=== PATIENT | female | born 1975 | race Caucasian/White ===

== ENCOUNTER 2016-06-04 13:27 | Outpatient (RCR) | payer MEDICARE, MEDICAID | END 2016-06-26 | LOC: M PT 13:27 | PROVIDERS: ATTEND Surgery | DX: Z51.89 Encounter for other specified aftercare (principal); I89.0 Lymphedema, not elsewhere classified ==

== ENCOUNTER → 2016-06-25 | Outpatient (CLI) | payer MEDICARE, MEDICAID ==
[2016-06-25 13:50] LABS: BASO # 0.2 K/mm3 (0.0-0.2); BASO % 1.8 % (0.0-1.0); EOS # 0.1 K/mm3 (0.0-0.50); EOS % 0.8 % (0.0-3.0); LARGE UNSTAINED CELL # 0.4 K/mm3 (0.0-0.4); LARGE UNSTAINED CELL % 3.3 % (0.0-4.0); LYMPH # 2.4 K/mm3 (1.5-4.5); LYMPH % 18.9 % (24.0-44.0); MEAN CORPUSCULAR HEMOGLOBIN 27.2 pg (27.0-33.0); MEAN CORPUSCULAR HGB CONC 31.3 g/dl (32.0-36.5); MEAN CORPUSCULAR VOLUME 86.9 fl (80.0-96.0); MONO # 0.6 K/mm3 (0.0-0.8); MONO % 5.7 % (0.0-5.0); NEUTROPHILS # 7.4 K/mm3 (1.8-7.7); NEUTROPHILS % 69.5 % (36.0-66.0); PLATELET COUNT, AUTOMATED 374 k/mm3 (150-450); RED CELL DISTRIBUTION WIDTH 17.9 % (11.5-14.5); WHITE BLOOD COUNT 10.7 K/mm3 (4.0-10.0)
[2016-06-25 13:59] LABS: ALBUMIN 3.8 GM/DL (3.2-5.2); ALT/SGPT 41 U/L (12-78); CREATININE FOR GFR 0.77 MG/DL (0.55-1.02); GLOMERULAR FILTRATION RATE > 60.0 (>58)
== END ==
LOC: M LAB 13:14
PROVIDERS: ATTEND Internal Medicine Rheumatology
DX: M05.79 Rheumatoid arthritis with rheumatoid factor of multiple sites without organ or systems involvement (principal); Z51.81 Encounter for therapeutic drug level monitoring; Z79.899 Other long term (current) drug therapy

== ENCOUNTER → 2016-07-17 | Outpatient (CLI) | payer MEDICARE, MEDICAID ==
[2016-07-17 14:13] LABS: BASO # 0.1 K/mm3 (0.0-0.2); BASO % 0.7 % (0.0-1.0); EOS # 0.1 K/mm3 (0.0-0.50); EOS % 1.2 % (0.0-3.0); LARGE UNSTAINED CELL # 0.3 K/mm3 (0.0-0.4); LARGE UNSTAINED CELL % 2.9 % (0.0-4.0); LYMPH # 2.2 K/mm3 (1.5-4.5); LYMPH % 22.8 % (24.0-44.0); MEAN CORPUSCULAR HEMOGLOBIN 27.1 pg (27.0-33.0); MEAN CORPUSCULAR HGB CONC 31.2 g/dl (32.0-36.5); MEAN CORPUSCULAR VOLUME 86.7 fl (80.0-96.0); MONO # 0.4 K/mm3 (0.0-0.8); MONO % 4.3 % (0.0-5.0); NEUTROPHILS # 6.5 K/mm3 (1.8-7.7); NEUTROPHILS % 68.2 % (36.0-66.0); PLATELET COUNT, AUTOMATED 457 k/mm3 (150-450); RED CELL DISTRIBUTION WIDTH 16.3 % (11.5-14.5); WHITE BLOOD COUNT 9.5 K/mm3 (4.0-10.0)
[2016-07-17 14:36] LABS: ALBUMIN 3.8 GM/DL (3.2-5.2); ALT/SGPT 147 U/L (12-78); CREATININE FOR GFR 0.71 MG/DL (0.55-1.02); GLOMERULAR FILTRATION RATE > 60.0 (>58)
== END ==
LOC: M LAB 13:23
PROVIDERS: ATTEND Internal Medicine Rheumatology
DX: M05.79 Rheumatoid arthritis with rheumatoid factor of multiple sites without organ or systems involvement (principal); Z79.899 Other long term (current) drug therapy

== ENCOUNTER → 2016-08-08 | Outpatient (CLI) | payer MEDICARE, MEDICAID ==
[2016-08-08 15:46] LABS: BASO % 0.4 % (0.0-1.0); EOS % 0.5 % (0.0-3.0); LARGE UNSTAINED CELL # 0.1 K/mm3 (0.0-0.4); LYMPH # 1.7 K/mm3 (1.5-4.5); LYMPH % 29.3 % (24.0-44.0); MEAN CORPUSCULAR HEMOGLOBIN 27.9 pg (27.0-33.0); MEAN CORPUSCULAR HGB CONC 32.1 g/dl (32.0-36.5); MEAN CORPUSCULAR VOLUME 86.9 fl (80.0-96.0); MONO # 0.2 K/mm3 (0.0-0.8); MONO % 4.5 % (0.0-5.0); NEUTROPHILS # 3.4 K/mm3 (1.8-7.7); NEUTROPHILS % 63.4 % (36.0-66.0); PLATELET COUNT, AUTOMATED 310 k/mm3 (150-450); RED CELL DISTRIBUTION WIDTH 16.2 % (11.5-14.5); WHITE BLOOD COUNT 5.4 K/mm3 (4.0-10.0)
[2016-08-08 16:10] LABS: ALBUMIN 3.5 GM/DL (3.2-5.2); ALBUMIN/GLOBULIN RATIO 0.95 (1.00-1.93); ALKALINE PHOSPHATASE 101 U/L (45-117); ALT/SGPT 42 U/L (12-78); AST/SGOT 34 U/L (15-37); BILIRUBIN,DIRECT 0.1 MG/DL (0.0-0.2); BILIRUBIN,TOTAL 0.3 MG/DL (0.2-1.0); CREATININE FOR GFR 0.75 MG/DL (0.55-1.02); GLOMERULAR FILTRATION RATE > 60.0 (>58); TOTAL PROTEIN 7.2 GM/DL (6.4-8.2)
== END ==
LOC: M LAB 14:44
PROVIDERS: ATTEND Internal Medicine Rheumatology
DX: M05.79 Rheumatoid arthritis with rheumatoid factor of multiple sites without organ or systems involvement (principal); Z79.899 Other long term (current) drug therapy

== ENCOUNTER → 2016-09-26 | Outpatient (CLI) | payer MEDICARE ==
--- NOTE | 2016-09-26 15:02 | REP ---
BILATERAL MAMMOGRAM, BASELINE STUDY: MLO and CC views of both breasts are performed. Moderate fibroglandular tissue is seen bilaterally in a fairly symmetrical pattern. On the left CC view laterally and posteriorly, is a rounded density 8 mm in diameter. This is not definitely seen on the MLO view. No other mass is seen. No clustered microcalcifications are seen. IMPRESSION: ACR 0 incomplete. Possible 8 mm nodular opacity lateral left breast only seen on the CC view. Recommend spot compression view left breast in the CC projection as well as the left ML view. Further views and ultrasound may also be necessary. BI-RADS/ACR category 0 mammogram. Incomplete. Additional imaging and/or prior images are needed before a final assessment can be assigned. This mammogram was interpreted with the aid of an FDA-approved computer-aided detection system. The patient states she/he has not had a clinical breast exam in over a year. The patient letter being requested is M0. Signed by Jesse Michel MD 09/26/2016 04:48 P
== END ==
LOC: M RAD 13:14
PROVIDERS: ATTEND Neuromusculoskeletal Medicine & OMM
DX: Z12.31 Encounter for screening mammogram for malignant neoplasm of breast (principal); R92.8 Other abnormal and inconclusive findings on diagnostic imaging of breast

== ENCOUNTER → 2016-09-26 | Outpatient (CLI) | payer MEDICARE ==
[2016-09-26 14:34] LABS: BASO # 0.1 K/mm3 (0.0-0.2); BASO % 0.9 % (0.0-1.0); EOS # 0.1 K/mm3 (0.0-0.50); EOS % 1.3 % (0.0-3.0); LARGE UNSTAINED CELL # 0.2 K/mm3 (0.0-0.4); LARGE UNSTAINED CELL % 2.1 % (0.0-4.0); LYMPH # 2.1 K/mm3 (1.5-4.5); LYMPH % 20.4 % (24.0-44.0); MEAN CORPUSCULAR HEMOGLOBIN 26.7 pg (27.0-33.0); MEAN CORPUSCULAR HGB CONC 31.1 g/dl (32.0-36.5); MEAN CORPUSCULAR VOLUME 85.9 fl (80.0-96.0); MONO # 0.4 K/mm3 (0.0-0.8); MONO % 4.2 % (0.0-5.0); NEUTROPHILS # 6.6 K/mm3 (1.8-7.7); PLATELET COUNT, AUTOMATED 418 k/mm3 (150-450); RED CELL DISTRIBUTION WIDTH 16.4 % (11.5-14.5); WHITE BLOOD COUNT 9.2 K/mm3 (4.0-10.0)
[2016-09-26 14:49] LABS: ALBUMIN 3.6 GM/DL (3.2-5.2); ALBUMIN/GLOBULIN RATIO 0.97 (1.00-1.93); ALKALINE PHOSPHATASE 133 U/L (45-117); ALT/SGPT 33 U/L (12-78); ANION GAP 8 MEQ/L (8-16); AST/SGOT 19 U/L (15-37); BILIRUBIN,DIRECT 0.1 MG/DL (0.0-0.2); BILIRUBIN,TOTAL 0.4 MG/DL (0.2-1.0); BLOOD UREA NITROGEN 10 MG/DL (7-18); CARBON DIOXIDE LEVEL 26 MEQ/L (21-32); CHLORIDE LEVEL 107 MEQ/L (98-107); CREATININE FOR GFR 0.74 MG/DL (0.55-1.02); GLOMERULAR FILTRATION RATE > 60.0 (>58); GLUCOSE, FASTING 132 MG/DL (70-105); PHOSPHORUS LEVEL 2.8 MG/DL (2.5-4.9); POTASSIUM SERUM 4.1 MEQ/L (3.5-5.1); SODIUM LEVEL 141 MEQ/L (136-145); TOTAL PROTEIN 7.3 GM/DL (6.4-8.2)
== END ==
LOC: M LAB 13:54
PROVIDERS: ATTEND Internal Medicine Rheumatology
DX: Z12.31 Encounter for screening mammogram for malignant neoplasm of breast (principal); R92.8 Other abnormal and inconclusive findings on diagnostic imaging of breast; M05.79 Rheumatoid arthritis with rheumatoid factor of multiple sites without organ or systems involvement; Z51.81 Encounter for therapeutic drug level monitoring; Z79.899 Other long term (current) drug therapy
CPT/HCPCS: 36415; 80069; 80076; 85025; G0202

== ENCOUNTER 2016-10-15 10:09 | Emergency (ER) | payer MEDICARE ==
[~2016-10-15] VITALS: Ht 167.6 cm; Wt 95.3 kg
[2016-10-15] MEDS ORDERED: LEFL1TAB4 (10:20)
[2016-10-15] MEDS ORDERED: HYDR12CA (10:20)
[2016-10-15] MEDS ORDERED: ALBU83IN (10:20)
[2016-10-15] MEDS ORDERED: PROA1AER (10:20)
[2016-10-15] MEDS ORDERED: OMEP40CA2 (10:20)
[2016-10-15] MEDS ORDERED: IPRATROPIUM 0.5MG/ALBUTEROL 2.5MG INH SOL UD 3ML (DUONEB)(J7620) NEB ONE (11:00)
[2016-10-15] MEDS ORDERED: GUAI5ELAC PO (11:45)
[2016-10-15] MEDS ORDERED: PRED20TA PO (11:45)
--- NOTE | 2016-10-15 11:49 | REP ---
Clinical: Cough . Comparison: 07/20/2014 . Technique: PA and lateral. Findings: The mediastinum and cardiac silhouette are normal. The lung burciaga are clear and without acute consolidation, effusion, or pneumothorax. The skeletal structures are intact and normal. Impression: 1. No acute cardiopulmonary process. Signed by Saad Lopez MD 10/15/2016 11:41 A
[2016-10-15 11:51] VITALS: BP 179/85
== END 2016-10-15 11:59 | disposition home or self-care (01) ==
LOC: M ED 11:03
DX: J20.9 Acute bronchitis, unspecified (principal); I10 Essential (primary) hypertension; J45.909 Unspecified asthma, uncomplicated; M06.9 Rheumatoid arthritis, unspecified; Z79.899 Other long term (current) drug therapy

== ENCOUNTER → 2016-10-16 | Outpatient (CLI) | payer MEDICARE ==
[~2016-10-16] MED LIST: ALBU83IN; GUAI5ELAC PO; HYDR12CA; LEFL1TAB4; OMEP40CA2; PRED20TA PO; PROA1AER
--- NOTE | 2016-10-16 11:41 | REP ---
DIGITAL DIAGNOSTIC UNILATERAL LEFT BREAST MAMMOGRAPHY WITH CAD AND FOCUSED LEFT BREAST SONOGRAPHY: HISTORY: Baseline screening mammography from September 26, 2016 was BIRADS category 0 because of a nodular 8 mm density projecting laterally seen on the CC view only. Diagnostic imaging was recommended. MAMMOGRAPHIC FINDINGS: Magnified focal spot compression CC, laterally exaggerated CC, true MLO, and MLO views of the left breast confirm the presence of a 7 mm nodular opacity with a hilar configuration possibly containing some fat in the upper outer quadrant of the left breast. This is felt to be consistent with a lymph node. No spiculation, suspicious microcalcification or other soft tissue density is seen. MAMMOGRAPHIC FINDINGS: The left breast is examined sonographically from 12-o'clock position to 3-o'clock position encompassing the upper outer quadrant. At 2-o'clock position, there is a lymph node measuring 5.4 x 5.4 x 3.1 cm located 8.8 cm from the nipple. A benign appearance is seen. IMPRESSION: BIRADS category II benign left breast imaging. Normal appearing lymph node observed in the upper outer quadrant by mammography and ultrasound. Annual screening mammography recommended. BI-RADS/ACR category 2 mammogram. Benign finding(s). Routine annual screening mammography (for women over age 40). This mammogram was interpreted with the aid of an FDA-approved computer-aided detection system. The patient states that she/he has not had a clinical breast exam in over a year. The patient letter being requested is M1. Signed by Riaz Johnson MD 10/16/2016 05:07 P
== END ==
LOC: M RAD 09:36
PROVIDERS: ATTEND Neuromusculoskeletal Medicine & OMM
DX: R92.8 Other abnormal and inconclusive findings on diagnostic imaging of breast (principal)
CPT/HCPCS: 76642; G0206

== ENCOUNTER 2016-11-05 13:19 | Outpatient (RCR) | payer MEDICARE, MEDICAID ==
[~2016-11-05 13:19] MED LIST changes: -ALBU83IN; +ALBU83IN INH; -HYDR12CA; +HYDR12CA PO; -OMEP40CA2; +OMEP40CA2 PO; -PROA1AER; +PROAAER10 INH
== END 2016-11-23 ==
LOC: M PT 13:19
PROVIDERS: ATTEND Surgery
DX: Z51.89 Encounter for other specified aftercare (principal); I89.0 Lymphedema, not elsewhere classified
CPT/HCPCS: 97161; G8978; G8979; G8980

== ENCOUNTER → 2016-11-05 | Outpatient (CLI) | payer MEDICARE, MEDICAID ==
[2016-11-05 19:45] LABS: ALBUMIN 3.4 GM/DL (3.2-5.2); ALT/SGPT 44 U/L (12-78); GLOMERULAR FILTRATION RATE > 60.0 (>58)
[2016-11-05 22:15] LABS: BASO # 0.1 K/mm3 (0.0-0.2); BASO % 0.9 % (0.0-1.0); EOS # 0.1 K/mm3 (0.0-0.50); EOS % 1.2 % (0.0-3.0); LARGE UNSTAINED CELL # 0.2 K/mm3 (0.0-0.4); LARGE UNSTAINED CELL % 1.9 % (0.0-4.0); LYMPH # 1.8 K/mm3 (1.5-4.5); MEAN CORPUSCULAR HEMOGLOBIN 26.7 pg (27.0-33.0); MEAN CORPUSCULAR HGB CONC 31.3 g/dl (32.0-36.5); MEAN CORPUSCULAR VOLUME 85.5 fl (80.0-96.0); MONO # 0.5 K/mm3 (0.0-0.8); MONO % 5.8 % (0.0-5.0); NEUTROPHILS # 6.3 K/mm3 (1.8-7.7); NEUTROPHILS % 70.4 % (36.0-66.0); PLATELET COUNT, AUTOMATED 404 k/mm3 (150-450); RED CELL DISTRIBUTION WIDTH 16.5 % (11.5-14.5); WHITE BLOOD COUNT 8.9 K/mm3 (4.0-10.0)
== END ==
LOC: M LAB 14:14
PROVIDERS: ATTEND Internal Medicine Rheumatology
DX: M05.79 Rheumatoid arthritis with rheumatoid factor of multiple sites without organ or systems involvement (principal); Z79.899 Other long term (current) drug therapy

== ENCOUNTER → 2016-11-19 | Outpatient (CLI) | payer MEDICARE, MEDICAID ==
[~2016-11-19] MED LIST changes: +ALBU83IN; -ALBU83IN INH; +HYDR12CA; -HYDR12CA PO; +OMEP40CA2; -OMEP40CA2 PO; +PROA1AER; -PROAAER10 INH
[2016-11-19 11:03] LABS: ALBUMIN 3.4 GM/DL (3.2-5.2); ALBUMIN/GLOBULIN RATIO 0.89 (1.00-1.93); ALKALINE PHOSPHATASE 133 U/L (45-117); ALT/SGPT 33 U/L (12-78); AST/SGOT 42 U/L (15-37); BILIRUBIN,DIRECT < 0.1 MG/DL (0.0-0.2); BILIRUBIN,TOTAL 0.2 MG/DL (0.2-1.0); TOTAL PROTEIN 7.2 GM/DL (6.4-8.2)
--- NOTE | 2016-11-19 12:14 | REP ---
Clinical: Abdominal pain. History of chemotherapy. Technique: Michel scale ultrasound using curved array transducer. Findings: The liver demonstrates fatty infiltration without focal hepatic lesion identified. The pancreas is normal in contour, size, and echogenicity without focal pancreatic lesion identified. The gallbladder is normal without gallstones, wall thickening or pericholecystic fluid. No biliary ductal dilatation is appreciated, and the common bile duct measures 3.0 mm diameter. The right kidney is normal in reniform shape without hydronephrosis and measures 10.4 x 4.7 x 4.2 cm. No ascites. Visualized portions of the abdominal aorta normal. Impression: Hepatosteatosis. Otherwise normal right upper quadrant and gallbladder abdominal ultrasound. Signed by Saad Lopez MD 11/19/2016 09:30 A
== END ==
LOC: M RAD 08:52 → M LAB 08:52
PROVIDERS: ATTEND Internal Medicine Gastroenterology
DX: R74.8 Abnormal levels of other serum enzymes (principal)

== ENCOUNTER → 2016-12-24 | Outpatient (CLI) | payer MEDICARE, MEDICAID ==
[~2016-12-24] MED LIST changes: -ALBU83IN; +ALBU83IN INH; +ARAV20TA PO; +FOLI1TAB4 PO; +FOLI5CAP PO; -HYDR12CA; +HYDR12CA PO; +LEVO750T13 PO; +MEDR4PAK PO; +METH2.5TA PO; -OMEP40CA2; +OMEP40CA2 PO; +PRED10TA2 PO; -PROA1AER; +PROAAER10 INH; +TRAM50TA2 PO; +VITMTA PO; +ZITHTAB PO
[2016-12-24 15:58] LABS: ADD MANUAL DIFFER YES; MEAN CORPUSCULAR HEMOGLOBIN 25.8 pg (27.0-33.0); MEAN CORPUSCULAR HGB CONC 31.2 g/dl (32.0-36.5); MEAN CORPUSCULAR VOLUME 82.7 fl (80.0-96.0); PLATELET COUNT, AUTOMATED 508 k/mm3 (150-450); RED CELL DISTRIBUTION WIDTH 16.1 % (11.5-14.5); WHITE BLOOD COUNT 8.5 K/mm3 (4.0-10.0)
[2016-12-24 16:02] LABS: ALBUMIN 3.6 GM/DL (3.2-5.2); ALT/SGPT 58 U/L (12-78); GLOMERULAR FILTRATION RATE > 60.0 (>58)
[2016-12-24 21:49] LABS: ANISOCYTOSIS 2+; EOSINOPHILS 3 % (0-5); HYPOCHROMASIA 1+
== END ==
LOC: M LAB 15:18
PROVIDERS: ATTEND Internal Medicine Rheumatology
DX: M05.79 Rheumatoid arthritis with rheumatoid factor of multiple sites without organ or systems involvement (principal); Z79.899 Other long term (current) drug therapy

== ENCOUNTER → 2017-01-10 | Outpatient (REF) | payer MEDICARE, MEDICAID | LOC: M LAB REF 15:34 | PROVIDERS: ATTEND Neuromusculoskeletal Medicine & OMM | DX: L03.311 Cellulitis of abdominal wall (principal) | CPT/HCPCS: 87081; G0463 ==

== ENCOUNTER → 2017-01-17 | Outpatient (CLI) | payer MEDICARE, MEDICAID ==
[2017-01-17 12:53] LABS: BASO # 0.1 K/mm3 (0.0-0.2); EOS # 0.1 K/mm3 (0.0-0.50); EOS % 1.9 % (0.0-3.0); LARGE UNSTAINED CELL # 0.2 K/mm3 (0.0-0.4); LARGE UNSTAINED CELL % 2.4 % (0.0-4.0); LYMPH # 2.1 K/mm3 (1.5-4.5); LYMPH % 27.1 % (24.0-44.0); MEAN CORPUSCULAR HEMOGLOBIN 26.3 pg (27.0-33.0); MEAN CORPUSCULAR HGB CONC 31.8 g/dl (32.0-36.5); MEAN CORPUSCULAR VOLUME 82.5 fl (80.0-96.0); MONO # 0.5 K/mm3 (0.0-0.8); MONO % 6.9 % (0.0-5.0); NEUTROPHILS # 4.3 K/mm3 (1.8-7.7); NEUTROPHILS % 60.7 % (36.0-66.0); PLATELET COUNT, AUTOMATED 407 k/mm3 (150-450)
[2017-01-17 13:02] LABS: PERCENT SATURATION 8.9 % (13.2-45.0)
== END ==
LOC: M LAB 11:38
PROVIDERS: ATTEND Internal Medicine Rheumatology
DX: M05.79 Rheumatoid arthritis with rheumatoid factor of multiple sites without organ or systems involvement (principal); Z79.899 Other long term (current) drug therapy; E61.1 Iron deficiency

== ENCOUNTER → 2017-01-24 | Outpatient (REF) | payer MEDICARE, MEDICAID ==
[2017-01-24 18:29] LABS: ALBUMIN 3.4 GM/DL (3.2-5.2); ALT/SGPT 39 U/L (12-78); CREATININE FOR GFR 0.67 MG/DL (0.55-1.02); GLOMERULAR FILTRATION RATE > 60.0 (>58)
== END ==
LOC: M LABDRAW1 15:54
PROVIDERS: ATTEND Internal Medicine Rheumatology
DX: M05.79 Rheumatoid arthritis with rheumatoid factor of multiple sites without organ or systems involvement (principal); Z79.899 Other long term (current) drug therapy

== ENCOUNTER 2017-02-13 19:35 | Emergency (ER) | payer MEDICARE, MEDICAID ==
[~2017-02-13] VITALS: Ht 167.6 cm; Wt 95.0 kg
[~2017-02-13 19:35] MED LIST changes: -ARAV20TA PO; -FOLI1TAB4 PO; -FOLI5CAP PO; -LEVO750T13 PO; -MEDR4PAK PO; -METH2.5TA PO; -PRED10TA2 PO; -TRAM50TA2 PO; -VITMTA PO; -ZITHTAB PO
[2017-02-13] MEDS ORDERED: METH2.5TA PO (20:25)
[2017-02-13] MEDS ORDERED: FOLI5CAP PO (20:25)
[2017-02-13] MEDS ORDERED: ARAV20TA PO (20:26)
[2017-02-13] MEDS ORDERED: TRAM50TA2 PO (21:46)
[2017-02-13 22:03] VITALS: BP 143/91
--- NOTE | 2017-02-14 07:43 | REP ---
Right hand four views: Comparison 11/12/2013. There is mild joint space narrowing of the PIP and DIP articulations. This has slightly progressed and is compatible with articular cartilage atrophy. The MCP articulations are unremarkable. There is joint space narrowing of the carpal ossicles. This has also progressed. Impression: Progressive early arthropathy. Signed by Jesse Hoyt MD 02/14/2017 07:35 A
== END 2017-02-13 22:05 | disposition home or self-care (01) ==
LOC: M ED 19:35
DX: S69.91XA Unspecified injury of right wrist, hand and finger(s), initial encounter (principal); W22.8XXA Striking against or struck by other objects, initial encounter; Y92.099 Unspecified place in other non-institutional residence as the place of occurrence of the external cause; Y93.9 Activity, unspecified; Y99.9 Unspecified external cause status; F17.200 Nicotine dependence, unspecified, uncomplicated; Z79.899 Other long term (current) drug therapy; Z91.013 Allergy to seafood

== ENCOUNTER → 2017-02-26 | Outpatient (CLI) | payer MEDICARE, MEDICAID ==
[~2017-02-26] MED LIST changes: +ARAV20TA PO; +FOLI1TAB4 PO; +FOLI5CAP PO; +LEVO750T13 PO; +MEDR4PAK PO; +METH2.5TA PO; +PRED10TA2 PO; +TRAM50TA2 PO; +VITMTA PO; +ZITHTAB PO
[2017-02-26 16:34] LABS: ALBUMIN 3.5 GM/DL (3.2-5.2); ALT/SGPT 46 U/L (12-78); CREATININE FOR GFR 0.76 MG/DL (0.55-1.02); GLOMERULAR FILTRATION RATE > 60.0 (>58)
[2017-02-26 21:47] LABS: BASO # 0.1 10^3/uL (0.0-0.2); BASO % 1.2 % (0.0-1.0); EOS # 0.3 10^3/uL (0.0-0.50); EOS % 2.9 % (0.0-3.0); IMMATURE GRANULOCYTE % 0.2 % (0-0); LYMPH # 2.3 10^3/uL (1.5-4.5); LYMPH % 26.7 % (24.0-44.0); MEAN CORPUSCULAR HEMOGLOBIN 26.3 pg (27.0-33.0); MEAN CORPUSCULAR HGB CONC 31.1 g/dl (32.0-36.5); MEAN CORPUSCULAR VOLUME 84.5 fl (80.0-96.0); MONO # 0.7 10^3/uL (0.0-0.8); MONO % 7.9 % (0.0-5.0); NEUTROPHILS # 5.2 10^3/uL (1.8-7.7); NEUTROPHILS % 61.1 % (36.0-66.0); PLATELET COUNT, AUTOMATED 439 10^3/uL (150-450); RED CELL DISTRIBUTION WIDTH 18.8 % (11.5-14.5); WHITE BLOOD COUNT 8.5 10^3/uL (4.0-10.0)
[2017-02-26 21:48] LABS: ADD MORPHOLOGY? NO
== END ==
LOC: M LAB 14:58
PROVIDERS: ATTEND Internal Medicine Rheumatology
DX: M05.79 Rheumatoid arthritis with rheumatoid factor of multiple sites without organ or systems involvement (principal)

== ENCOUNTER 2017-03-14 10:10 | Inpatient (IN) | payer MEDICARE, MEDICAID ==
[~2017-03-14] VITALS: Ht 167.6 cm; Wt 92.5 kg
[~2017-03-14 10:10] MED LIST changes: -FOLI1TAB4 PO; -LEVO750T13 PO; -MEDR4PAK PO; -PRED10TA2 PO; -VITMTA PO; -ZITHTAB PO
[2017-03-14] MEDS ORDERED: ZITHTAB PO (11:25)
[2017-03-14] MEDS ORDERED: predniSONE 20 MG TAB PO ONE (11:45)
[2017-03-14] MEDS ORDERED: ALBUTEROL SULFATE 2.5 MG/0.5 ML INH NEB SOLN NEB ONE ×2 (11:45→12:30)
[2017-03-14] MEDS ORDERED: MEDR4PAK PO (11:56)
[2017-03-14] MEDS ORDERED: methylPREDNISolone INJ 125 MG/2 ML VIAL (J2930) IV ONE (13:00)
[2017-03-14] MEDS ORDERED: IPRATROPIUM 0.5MG/ALBUTEROL 2.5MG INH SOL UD 3ML (DUONEB)(J7620) NEB ONE (13:15)
[2017-03-14] MEDS ORDERED: ACETAMINOPHEN TAB 650MG DOSE (2X325MG) PO ONE (13:30)
[2017-03-14 14:23] LABS: VENOUS BASE EXCESS 0.9 (-2.0-2.0); VENOUS O2 SATURATION 92.4 % (60.0-80.0); VENOUS PARTIAL PRESSURE CO2 36.4 mmHg (38.0-50.0); VENOUS PARTIAL PRESSURE O2 60.7 mmHg (30.0-50.0); VENOUS STANDARD HCO3 25.1 MEQ/L; VENOUS TOTAL CO2 25.7 MEQ/L (24.0-28.0)
[2017-03-14 14:28] LABS: BASO # 0.1 10^3/uL (0.0-0.2); BASO % 0.5 % (0.0-1.0); EOS % 0.1 % (0.0-3.0); IMMATURE GRANULOCYTE % 0.7 % (0-0); LYMPH # 0.8 10^3/uL (1.5-4.5); LYMPH % 4.9 % (24.0-44.0); MEAN CORPUSCULAR HEMOGLOBIN 26.6 pg (27.0-33.0); MEAN CORPUSCULAR HGB CONC 31.5 g/dl (32.0-36.5); MEAN CORPUSCULAR VOLUME 84.3 fl (80.0-96.0); MONO # 0.4 10^3/uL (0.0-0.8); MONO % 2.5 % (0.0-5.0); NEUTROPHILS # 14.4 10^3/uL (1.8-7.7); NEUTROPHILS % 91.3 % (36.0-66.0); PLATELET COUNT, AUTOMATED 469 10^3/uL (150-450); RED CELL DISTRIBUTION WIDTH 18.1 % (11.5-14.5); WHITE BLOOD COUNT 15.8 10^3/uL (4.0-10.0)
[2017-03-14 14:42] LABS: INR 1.05
--- NOTE | 2017-03-14 14:53 | REP ---
Chest two views HISTORY: Cough Comparison: 10/15/2016 The lungs are clear. The heart is normal in size. The pulmonary vasculature is normal in appearance. The bony structure is intact. IMPRESSION: No acute disease. Signed by Riley España MD 03/14/2017 02:44 P
[2017-03-14 14:58] LABS: ANION GAP 10 MEQ/L (8-16); BLOOD UREA NITROGEN 5 MG/DL (7-18); CALCIUM LEVEL 9.2 MG/DL (8.5-10.1); CARBON DIOXIDE LEVEL 26 MEQ/L (21-32); CHLORIDE LEVEL 103 MEQ/L (98-107); CREATININE FOR GFR 0.66 MG/DL (0.55-1.02); GLOMERULAR FILTRATION RATE > 60.0 (>58); GLUCOSE, FASTING 192 MG/DL (70-105); POTASSIUM SERUM 2.8 MEQ/L (3.5-5.1); SODIUM LEVEL 139 MEQ/L (136-145)
[2017-03-14] MEDS ORDERED: ISOVUE-370 76% 100ML VIAL (Q9967) As Ordered ONE (15:34)
[2017-03-14] MEDS ORDERED: NS 250 ML IV ONE (15:45)
[2017-03-14] MEDS ORDERED: POTASSIUM CHLORIDE 10 MEQ SR TABLET PO ONE (15:45)
[2017-03-14] MEDS ORDERED: KCL 10MEQ IN 100ML SWI (KRUN) 10 MEQ in APPROPRIATE DILUENT 1 EA IV ONE ×2 (16:00)
--- NOTE | 2017-03-14 17:07 | REP ---
CT ANGIOGRAM CHEST: 03/14/2017. Clinical history: Dyspnea, evaluate for pulmonary emboli. Technique: The patient received 75 mL Isovue 370, scanning through the chest with thick slab MIP reformatting. Findings: There are hazy ground-glass opacities scattered throughout the lung burci[place], may reflect some asthmatic atelectasis, interstitial edema or other interstitial infiltrates. I do not see dense consolidation with air bronchograms. There is no pleural effusion, pleural thickening or pleural based mass. No discrete nodule identified. Heart is not enlarged. There is no pericardial thickening or effusion. The aorta is without aneurysm or dissection. The main, right and left pulmonary arteries are without filling defects. Segmental arteries are without filling defects. Subsegmental arteries are not well opacified on this study, likely due to technical artifact. No pathologic sized mediastinal or hilar adenopathy and no axillary or supraclavicular mass. Bone windows show sternum, manubrium, portions of clavicles visible, head, glenohumeral joints, scapula, ribs and spine all grossly intact without destructive lesion or fracture. In the upper abdomen included that portion of liver, spleen, pancreas, gallbladder, adrenal glands and upper poles of kidneys were intact. None of them were seen in their entirety. Stomach filled with retained food. Impression: 1. There is no CT evidence of pulmonary thromboembolism. No mediastinal or hilar adenopathy, aortic aneurysm or dissection. 2. There is diffuse hazy ground-glass opacity in the lung burciaga without air bronchograms or dense consolidation. Findings may reflect some patchy atelectasis due to asthma, interstitial lung disease, interstitial edema or other. No effusion. Signed by Nadir Lizama MD 03/14/2017 08:11 P
[2017-03-14] MEDS ORDERED: LevoFLOXacin IV 750 MG in APPROPRIATE DILUENT 1 EA IV ONE (17:30)
[2017-03-14] MEDS ORDERED: VITMTA PO (17:41)
[2017-03-14] MEDS ORDERED: TRAM50TA2 PO (17:41)
[2017-03-14] MEDS ORDERED: FOLI1TAB4 PO (17:41)
[2017-03-14] MEDS ORDERED: ACETAMINOPHEN TAB 650MG DOSE (2X325MG) PO PRN (19:00)
[2017-03-14] MEDS ORDERED: ONDANSETRON 4MG/2ML VIAL (J2405) IV PRN (19:00)
[2017-03-14] MEDS ORDERED: LEVALBUTEROL 1.25 MG/0.5 ML CONCENTRATE NEB INH PRN (19:00)
[2017-03-14] MEDS: LEVALBUTEROL 1.25 MG/0.5 ML CONCENTRATE NEB INH SCH ×2 (20:00→23:37)
[2017-03-14] MEDS ORDERED: traMADol 50 MG TAB PO PRN (20:00)
--- NOTE | 2017-03-14 20:01 | HPEPDOC ---
[facility] Medical History & Physical Date of Admission Mar 14, 2017 History and Physical PRIMARY CARE PROVIDER: Jesse Richmond ATTENDING: Dr. Caterina Miguel CHIEF COMPLAINT: Shortness of breath HISTORY OF PRESENT ILLNESS: This is a 41-year-old female past medical history of asthma, rheumatoid arthritis, seasonal allergies, degenerative disc disease in the lumbar spine who presents complaining of shortness of breath 2 weeks. Patient states that she developed shortness of breath and wheezing followed by proctoscopy cough of yellow sputum which is been progressively getting worse over the past 2 weeks. Denies any sick contacts or recent travels. States she has a history of asthma since she was a child however has never been hospitalized for an asthma exacerbation. She does have a history of rheumatoid arthritis however is unsure whether she was ever diagnosed with interstitial lung disease. Patient did present to the ED was treated with nebulizers, steroids, with significant relief of her symptoms. Patient did have chest tightness with her asthma exacerbation describes as 4 out of 10, nonradiating, midsternal, nonpruritic, non-reproducible which improves with cough. PAST MEDICAL HISTORY: As per HPI PAST SURGICAL HISTORY: None SOCIAL HISTORY: Denies tobacco, alcohol, illicit drug use. FAMILY HISTORY: Mother with heart disease ALLERGIES: Please see below. REVIEW OF SYSTEMS: HEENT: Denies sore throat/headache CARDIOVASCULAR: Denies chest pain/palpitations RESPIRATORY: Positive shortness of breath/cough GASTROINTESTINAL: denies nausea/vomiting GENITOURINARY: Denies dysuria/urinary urgency. MUSCULOSKELETAL: Denies myalgias/arthralgias NEUROLOGICAL: Denies any focal weakness HOME MEDICATIONS: Please see below. PHYSICAL EXAMINATION: Vitals: (see below) General: No acute distress, laying comfortably in bed. HEENT: Moist mucous membranes. Neck: No JVD or lymphadenopathy Cardiac: Tachycardic. Regular rhythm, No murmurs Pulm: Coarse crackles at the bases b/l. Minimal respiratory wheezing bilaterally. No rhonchi. No stridor. No use of accessory muscles. Abd: NT/ND + BS Ext: No edema or cyanosis LABORATORY DATA: See below. IMAGING: CTA chest on 03/14/17 Impression: 1. There is no CT evidence of pulmonary thromboembolism. No mediastinal or hilar adenopathy, aortic aneurysm or dissection. 2. There is diffuse hazy ground-glass opacity in the lung burciaga without air bronchograms or dense consolidation. Findings may reflect some patchy atelectasis due to asthma, interstitial lung disease, interstitial edema or other. No effusion. MICROBIOLOGY: Please see below. ASSESSMENT/PLAN: 1. Asthma exacerbation, likely secondary to community acquired pneumonia- improved with nebulizers, steroids. Started on Levaquin. Continue nebs, steroids , oxygen therapy. No prior intubations or hospitalizations for asthma exacerbation. Questionable with the patient has started to develop interstitial lung disease secondary to her underlying rheumatoid arthritis. 2. Hypertension- uncontrolled. Started on amlodipine 3. Rheumatoid arthritis- continue meds 4. Seasonal allergies 5. Degenerative disc disease DVT prophylaxis- enoxaparin Patient will follow-up with Dr. Caterina Miguel starting 03/15/17 at 7 AM. Vital Signs Vital Signs Date Time Temp Pulse Resp B/P (MAP) Pulse Ox O2 Delivery O2 Flow Rate FiO2 03/14/17 17:31 114 161/64 (96) 94 03/14/17 16:46 98.7 18 03/14/17 12:50 Room Air Laboratory Data Labs 24H Laboratory Tests 2 03/14/17 13:27: Immature Granulocyte % (Auto) 0.7H, White Blood Count 15.8H, Red Blood Count 4.40, Hemoglobin 11.7L, Hematocrit 37.1, Mean Corpuscular Volume 84.3, Mean Corpuscular Hemoglobin 26.6L, Mean Corpuscular Hemoglobin Concent 31.5L, Red Cell Distribution Width 18.1H, Platelet Count 469H, Neutrophils (%) (Auto) 91.3H , Lymphocytes (%) (Auto) 4.9L, Monocytes (%) (Auto) 2.5, Eosinophils (%) (Auto) 0.1, Basophils (%) (Auto) 0.5, Neutrophils # (Auto) 14.4H, Lymphocytes # (Auto) 0.8L, Monocytes # (Auto) 0.4, Eosinophils # (Auto) 0.0, Basophils # (Auto) 0.1, Immature Granulocyte # (Auto) 0.1H, Nucleated Red Blood Cells % (auto) 0.0, Prothrombin Time 13.8, Prothromb Time International Ratio 1.05, Blood Gas Bicarbonate Standard 25.1, Venous Blood pH 7.448H, Venous Blood Partial Pressure CO2 36.4L, Venous Blood Partial Pressure O2 60.7H, Venous Blood Total Carbon Dioxide 25.7, Venous Blood HCO3 24.6, Venous Blood Oxygen Saturation 92.4H, Venous Blood Base Excess 0.9, Lactic Acid Level 1.9 03/14/17 14:42: Anion Gap 10, Glomerular Filtration Rate > 60.0, Blood Urea Nitrogen 5L, Creatinine 0.66, Sodium Level 139, Potassium Level 2.8*L, Chloride Level 103, Carbon Dioxide Level 26, Calcium Level 9.2, Total Creatine Kinase 72, Creatine Kinase MB 1.0, Creatine Kinase MB Relative Index 1.38, Troponin I < 0.02, NT-Pro -B-Type Natriuretic Peptide 159H CBC/BMP Laboratory Tests 03/14/17 13:27 Red Blood Count 4.40, Mean Corpuscular Volume 84.3, Mean Corpuscular Hemoglobin 26.6 L, Mean Corpuscular Hemoglobin Concent 31.5 L, Red Cell Distribution Width 18.1 H, Neutrophils (%) (Auto) 91.3 H, Lymphocytes (%) (Auto) 4.9 L, Monocytes ( %) (Auto) 2.5, Eosinophils (%) (Auto) 0.1, Basophils (%) (Auto) 0.5, Neutrophils # (Auto) 14.4 H, Lymphocytes # (Auto) 0.8 L, Monocytes # (Auto) 0.4 , Eosinophils # (Auto) 0.0, Basophils # (Auto) 0.1 03/14/17 14:42 Calcium Level 9.2, Total Creatine Kinase 72 Microbiology Microbiology 03/14/17 Blood Culture, Received Pending 03/14/17 Blood Culture, Received Pending 03/14/17 Influenza Virus Type A Antigen - Final, Complete 03/14/17 Influenza Virus Type B Antigen - Final, Complete Home Medications Scheduled Folic Acid (Folic Acid) 1 Mg Tab, 1 MG PO DAILY Hydrochlorothiazide (Hydrochlorothiazide) 12.5 Mg Cap, 12.5 MG PO DAILY Leflunomide (Arava) 20 Mg Tab, 20 MG PO DAILY Methotrexate (Methotrexate) 2.5 Mg Tab, 15 MG PO QWEEK FRIDAYS Multivitamins *[facility] STOCKED* (Thera M Plus *[facility] STOCKED*) 1 Tab Tab, 1 TAB PO DAILY Omeprazole (Omeprazole) 40 Mg Cap, 40 MG PO DAILY Scheduled PRN Albuterol Sulfate (Proair Hfa) 108 Mcg/Act Aer, 2 PUFFS INH Q4H PRN for SHORTNESS OF BREATH Albuterol Sulfate (Albuterol Sulfate) 2.5 Mg/3 Ml Nebu, 1 QUEENIE INH Q4H PRN for SHORTNESS OF BREATH Tramadol HCl (Tramadol HCl) 50 Mg Tab, 50 MG PO TID PRN for PAIN Allergies Coded Allergies: Raspberry (Unverified Allergy, Intermediate, HIVES, 03/14/17) SEAFOOD (Verified Allergy, Unknown, 02/13/17) YAZ CARVALHO MD Mar 14, 2017 20:01
[2017-03-14 20:54] LABS: ANION GAP 9 MEQ/L (8-16); BLOOD UREA NITROGEN 6 MG/DL (7-18); CALCIUM LEVEL 9.3 MG/DL (8.5-10.1); CARBON DIOXIDE LEVEL 26 MEQ/L (21-32); CHLORIDE LEVEL 107 MEQ/L (98-107); CREATININE FOR GFR 0.79 MG/DL (0.55-1.02); GLOMERULAR FILTRATION RATE > 60.0 (>58); GLUCOSE, FASTING 174 MG/DL (70-105); POTASSIUM SERUM 3.6 MEQ/L (3.5-5.1); SODIUM LEVEL 142 MEQ/L (136-145)
[2017-03-14 22:00] VITALS: BP 157/78
[2017-03-14] MEDS: guaiFENesin ER 600 MG TAB PO SCH (22:04)
[2017-03-15] VITALS (7 sets, daily range): BP systolic 127–152; BP diastolic 63–80
--- NOTE | 2017-03-15 06:04 | ECGEPIP ---
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
[2017-03-15] MEDS: LEVALBUTEROL 1.25 MG/0.5 ML CONCENTRATE NEB INH SCH ×4 (06:27→20:03)
[2017-03-15 06:45] LABS: MEAN CORPUSCULAR HEMOGLOBIN 26.5 pg (27.0-33.0); MEAN CORPUSCULAR HGB CONC 31.1 g/dl (32.0-36.5); MEAN CORPUSCULAR VOLUME 85.4 fl (80.0-96.0); PLATELET COUNT, AUTOMATED 455 10^3/uL (150-450); RED CELL DISTRIBUTION WIDTH 18.6 % (11.5-14.5); WHITE BLOOD COUNT 15.9 10^3/uL (4.0-10.0)
[2017-03-15 07:04] LABS: ANION GAP 8 MEQ/L (8-16); BLOOD UREA NITROGEN 8 MG/DL (7-18); CALCIUM LEVEL 9.6 MG/DL (8.5-10.1); CARBON DIOXIDE LEVEL 28 MEQ/L (21-32); CHLORIDE LEVEL 108 MEQ/L (98-107); CREATININE FOR GFR 0.63 MG/DL (0.55-1.02); GLOMERULAR FILTRATION RATE > 60.0 (>58); GLUCOSE, FASTING 128 MG/DL (70-105); MAGNESIUM LEVEL 2.4 MG/DL (1.8-2.4); POTASSIUM SERUM 3.8 MEQ/L (3.5-5.1); SODIUM LEVEL 144 MEQ/L (136-145)
[2017-03-15 07:16] LABS: ERYTHROCYTE SEDIMENTATION RATE 86 mm/hr (0-20)
[2017-03-15] MEDS ORDERED: hydroCHLOROthiazide 12.5 MG CAPSULE PO SCH (09:00)
[2017-03-15] MEDS ORDERED: FOLIC ACID 1 MG TAB PO SCH (09:00)
[2017-03-15] MEDS: PANTOPRAZOLE 40MG TAB (PROTONIX) PO SCH (09:21)
[2017-03-15] MEDS: methylPREDNISolone INJ 125 MG/2 ML VIAL (J2930) IV SCH ×2 (09:21→20:46)
[2017-03-15] MEDS: MULTIVITAMINS/MINERALS THERAP 1 TAB PO SCH (09:22)
[2017-03-15] MEDS: guaiFENesin ER 600 MG TAB PO SCH ×2 (09:22→20:46)
[2017-03-15] MEDS ORDERED: LevoFLOXacin IV 500 MG in APPROPRIATE DILUENT 1 EA IV ONE (10:00)
--- NOTE | 2017-03-15 15:28 | IPN ---
DATE: 03/15/2017 Patient seen and examined. Admitted overnight. Denies any chest pain, pressure, or discomfort. Reported respiration to be much improved. Denies any fevers or chills. Continues to have cough. VITAL SIGNS: Temperature 97.1, pulse 98, respirations 18, blood pressure 127/77, pulse oximetry 96% on room air. LABORATORY DATA: WBC 15.9, hemoglobin and hematocrit 10.9/35.1, platelets 455. Chemistry: Sodium 144, potassium 3.8, chloride 108, bicarbonate 28, BUN 8, creatinine 0.63, C-reactive protein 8.37. PHYSICAL EXAMINATION: GENERAL: Patient alert and oriented times three in no acute distress. HEENT: Normocephalic, atraumatic. PULMONARY: Coarse breath sounds bilateral with coarse crackles. Minimal expiratory wheezes. ABDOMEN: Soft and nontender. Positive bowel sounds. CARDIAC: Regular rate and rhythm. Normal S1, S2. ABDOMEN: Soft and nontender. Positive bowel sounds. EXTREMITIES: No edema, bilateral lower extremities. ASSESSMENT AND PLAN: This is a 41-year-old female patient with underlying medical history of asthma, rheumatoid arthritis, seasonal allergies, degenerative disc disease in the lumbar spine, who presented to the hospital with shortness of breath, progressively worsening for 2 weeks, admitted for acute asthma exacerbation. 1. Acute asthma exacerbation secondary to community-acquired bacterial pneumonia. Continue antibiotics, Levaquin, nebulizer treatment, steroids. Oxygen supplementation. Weaning FiO2. Possible developing interstitial lung disease secondary to her rheumatoid arthritis. Continue to follow. CT scan appreciated. Followup cultures. 2. Hypertension. Continue blood pressure medication as ordered. Patient currently on hydrochlorothiazide. 3. Rheumatoid arthritis. Continue current medication. Will restart methotrexate upon discharge. 4. Seasonal allergies. Continue current medication. 5. Degenerative disc disease. Continue current medication. 6. Deep vein thrombosis (DVT) prophylaxis. Lovenox subcutaneous. DISPOSITION: Pending clinical improvement. Likely discharge in the next 24 hours.
[2017-03-15] MEDS ORDERED: LevoFLOXacin IV 750 MG in APPROPRIATE DILUENT 1 EA IV SCH (18:00)
[2017-03-16] VITALS: BP 137/74
[2017-03-16] MEDS: LEVALBUTEROL 1.25 MG/0.5 ML CONCENTRATE NEB INH SCH ×3 (00:21→07:23)
[2017-03-16 05:57] VITALS: BP 146/71
[2017-03-16 07:07] LABS: MEAN CORPUSCULAR HEMOGLOBIN 26.5 pg (27.0-33.0); MEAN CORPUSCULAR VOLUME 85.3 fl (80.0-96.0); PLATELET COUNT, AUTOMATED 539 10^3/uL (150-450); RED CELL DISTRIBUTION WIDTH 18.7 % (11.5-14.5); WHITE BLOOD COUNT 15.9 10^3/uL (4.0-10.0)
[2017-03-16 07:25] LABS: ANION GAP 9 MEQ/L (8-16); BLOOD UREA NITROGEN 11 MG/DL (7-18); CALCIUM LEVEL 9.7 MG/DL (8.5-10.1); CARBON DIOXIDE LEVEL 26 MEQ/L (21-32); CHLORIDE LEVEL 106 MEQ/L (98-107); CREATININE FOR GFR 0.69 MG/DL (0.55-1.02); GLOMERULAR FILTRATION RATE > 60.0 (>58); GLUCOSE, FASTING 156 MG/DL (70-105); MAGNESIUM LEVEL 2.3 MG/DL (1.8-2.4); POTASSIUM SERUM 3.5 MEQ/L (3.5-5.1); SODIUM LEVEL 141 MEQ/L (136-145)
[2017-03-16 07:44] LABS: ERYTHROCYTE SEDIMENTATION RATE 70 mm/hr (0-20)
[2017-03-16] MEDS ORDERED: POTASSIUM CHLORIDE 10 MEQ SR TABLET PO ONE (07:45)
[2017-03-16] MEDS: MULTIVITAMINS/MINERALS THERAP 1 TAB PO SCH (07:56)
[2017-03-16] MEDS: PANTOPRAZOLE 40MG TAB (PROTONIX) PO SCH (07:57)
[2017-03-16] MEDS: methylPREDNISolone INJ 125 MG/2 ML VIAL (J2930) IV SCH (07:58)
[2017-03-16 08:00] VITALS: BP 164/79
[2017-03-16] MEDS ORDERED: LEVO750T13 PO (08:15)
[2017-03-16] MEDS ORDERED: PRED10TA2 PO (08:15)
[2017-03-16] MEDS ORDERED: predniSONE 50 MG TAB PO SCH (09:00)
--- NOTE | 2017-03-16 19:48 | DSES ---
DATE OF ADMISSION: 03/14/2017 DATE OF DISCHARGE: 03/16/2017 PRIMARY CARE PROVIDER: Jesse Richmond FINAL DIAGNOSES: 1. Acute asthma exacerbation secondary to community acquired bacterial pneumonia. 2. Hypertension. 3. Rheumatoid arthritis. 4. Seasonal allergies. 5. Degenerative disc disease. HISTORY OF PRESENT ILLNESS: This is a 41-year-old female patient with underlying medical history of asthma, rheumatoid arthritis, seasonal allergies, degenerative disc disease in the lumbar spine who presented with complaints of shortness of breath, progressively worsening for 2 weeks, reported productive cough, yellow sputum. Denies any sick contacts or recent travel. History of asthma reported since she was a child. Also a history of rheumatoid arthritis. HOSPITAL COURSE: The patient was admitted to the hospital and started on antibiotics, Levaquin, with also Solu-Medrol. Cultures were sent. Respiratory panel sent. X-rays were appreciated. The patient's C-reactive protein progressively improved. Steroids were tapered. CT angio was appreciated. The patient currently reported that symptoms are much improved, ready for discharge for further care as an outpatient. VITAL SIGNS: Temperature 98.2, pulse 105, respirations 20, blood pressure 164/79, pulse oximetry 92% on room air. GENERAL: The patient is alert and oriented times three, no acute distress. HEENT: Normocephalic, atraumatic. PULMONARY: Minimal expiratory wheeze. CARDIAC: Regular rate and rhythm. Normal S1, S2. ABDOMEN: Soft, nondistended. Positive bowel sounds. EXTREMITIES: No clubbing, cyanosis or edema. LABORATORY DATA: WBC 15.9, hemoglobin and hematocrit 11.2/36.1, platelets 539. Chemistry: Sodium 141, potassium 3.5, chloride 106, bicarbonate 26, BUN 11, creatinine 0.69. DISCHARGE MEDICATIONS: - Levaquin 750 mg by mouth daily for 5 more days - prednisone steroid taper 10 mg tablet to take four tablets daily for 3 days, then three tablets daily for 3 days, then two tablets daily for 3 days, then one tablet daily for 3 days, and then stop - ProAir inhalation every 4 hours as needed - folic acid 1 mg by mouth daily - Hydrochlorothiazide 12.5 mg by mouth daily - leflunomide 20 mg by mouth daily - methotrexate 50 mg by mouth weekly - multivitamin one tablet by mouth daily - omeprazole 40 mg by mouth daily - tramadol 50 mg by mouth three times a day as needed DISCHARGE INSTRUCTIONS: The patient is instructed to followup with primary care provider in 7 days. Return to the hospital if symptoms worsen. Continue pulmonary consultation as an outpatient.
== END 2017-03-16 10:00 | disposition home or self-care (01) | DRG 194 ==
LOC: M ED 10:10 → M ED INP 18:50 → M PCU 03-15 05:34 → M PED 03-15 17:56
PROVIDERS: ADMIT Internal Medicine; ATTEND Hospitalist
DX: J15.9 Unspecified bacterial pneumonia (principal); J45.901 Unspecified asthma with (acute) exacerbation; M06.9 Rheumatoid arthritis, unspecified; J30.2 Other seasonal allergic rhinitis; I10 Essential (primary) hypertension; Z79.899 Other long term (current) drug therapy; Z91.013 Allergy to seafood; Z91.018 Allergy to other foods

== ENCOUNTER → 2017-04-08 | Outpatient (CLI) | payer MEDICARE, MEDICAID ==
[~2017-04-08] MED LIST changes: +FOLI1TAB4 PO; +LEVO750T13 PO; +MEDR4PAK PO; +PRED10TA2 PO; +STIO1AER INH; +VITMTA PO; +ZITHTAB PO
--- NOTE | 2017-04-08 12:40 | REP ---
CHEST, TWO VIEWS: COMPARISON: 03/14/2017 There is no evidence of acute infiltrate. No pleural effusion is seen. The heart is normal in size. The mediastinal silhouette is unremarkable. The visualized osseous structures are intact. IMPRESSION: No acute pulmonary disease. Signed by Jesse Michel MD 04/08/2017 12:45 P
== END ==
LOC: M RAD 12:05
PROVIDERS: ATTEND Family Medicine
DX: R05 Cough (principal); H60.503 Unspecified acute noninfective otitis externa, bilateral; J45.40 Moderate persistent asthma, uncomplicated
CPT/HCPCS: 71020; 94060; G0463

== ENCOUNTER 2017-04-22 11:58 | Inpatient (IN) | payer MEDICARE, MEDICAID ==
[~2017-04-22] VITALS: Ht 167.6 cm; Wt 86.9 kg
[~2017-04-22 11:58] MED LIST changes: -STIO1AER INH
[2017-04-22] MEDS ORDERED: STIO1AER INH (12:08)
[2017-04-22 13:13] LABS: BASO # 0.1 10^3/uL (0.0-0.2); BASO % 0.7 % (0.0-1.0); EOS # 0.1 10^3/uL (0.0-0.50); EOS % 0.6 % (0.0-3.0); IMMATURE GRANULOCYTE % 0.6 % (0-0); LYMPH # 2.6 10^3/uL (1.5-4.5); LYMPH % 15.1 % (24.0-44.0); MEAN CORPUSCULAR HEMOGLOBIN 25.9 pg (27.0-33.0); MEAN CORPUSCULAR VOLUME 83.6 fl (80.0-96.0); MONO # 1.5 10^3/uL (0.0-0.8); MONO % 8.9 % (0.0-5.0); NEUTROPHILS # 12.7 10^3/uL (1.8-7.7); NEUTROPHILS % 74.1 % (36.0-66.0); PLATELET COUNT, AUTOMATED 581 10^3/uL (150-450); RED CELL DISTRIBUTION WIDTH 18.6 % (11.5-14.5); WHITE BLOOD COUNT 17.2 10^3/uL (4.0-10.0)
[2017-04-22 13:27] LABS: INR 1.11
--- NOTE | 2017-04-22 13:44 | REP ---
CHEST X-RAY: Two views. HISTORY: Chest pain. COMPARISON STUDY: April 08, 2017. Comparison radiographs from October 15, 2016 and March 14, [address] study March 14, 2017 is reviewed as well. FINDINGS: There is diffuse peribronchial thickening. A pattern of patchy bilateral upper lobe interstitial infiltrates is seen right greater than left. EKG monitoring electrodes and oxygen delivery tubing is seen. Pleural angles are sharp. Cardiomediastinal silhouette remains unremarkable. No bony abnormality. IMPRESSION: Bilateral upper lobe patchy interstitial infiltrates, diffuse peribronchial thickening. Question atypical pneumonia or viral pneumonia. This is new when compared with April 08, 2017 chest x-ray although similar findings were described on the chest CT report from March 14, 2017. Signed by Riaz Johnson MD 04/22/2017 03:31 P
[2017-04-22 13:49] LABS: ANION GAP 8 MEQ/L (8-16); BLOOD UREA NITROGEN 6 MG/DL (7-18); CARBON DIOXIDE LEVEL 27 MEQ/L (21-32); CHLORIDE LEVEL 102 MEQ/L (98-107); CREATININE FOR GFR 0.63 MG/DL (0.55-1.02); GLOMERULAR FILTRATION RATE > 60.0 (>58); GLUCOSE, FASTING 118 MG/DL (70-105); POTASSIUM SERUM 3.1 MEQ/L (3.5-5.1); SODIUM LEVEL 137 MEQ/L (136-145)
[2017-04-22] MEDS ORDERED: NS 500 ML IV ONE (14:15)
[2017-04-22] MEDS ORDERED: ISOVUE-370 76% 100ML VIAL (Q9967) As Ordered ONE (14:23)
[2017-04-22 14:28] LABS: CONTROL LINE HCG INT CTR LINE PRESENT
[2017-04-22] MEDS ORDERED: POTASSIUM CHLORIDE 10 MEQ SR TABLET PO ONE ×3 (14:30→17:30)
--- NOTE | 2017-04-22 15:11 | REP ---
CT pulmonary angiogram: With IV contrast. History: Chest pain and shortness of breath. Comparison studies: Comparison CT study March 14, 2017. Comparison is made with today's chest x-ray. Contrast dose: 75 cc's of Isovue [address] technique: Helical scanning is acquired and overlapping 1.5 mm and contiguous 3 mm axial images are reformatted. In addition, a 3-D work station is deployed to generate thick slab maximum intensity projection images in sagittal and coronal imaging projections. CT pulmonary angiographic findings: There is good opacification of the pulmonary arterial tree and there is no CT evidence of pulmonary embolism. The thoracic aorta enhances normally and homogeneously. It is normal in course and caliber. There is no evidence of hilar or mediastinal lymphadenopathy. A stable right superior mediastinal lymph node is seen measuring 1.1 cm unchanged. No pleural or pericardial effusion is seen. No adrenal lesion is observed. The visualized upper abdominal structures are unremarkable. Lung window settings again demonstrate patchy areas of interstitial and alveolar ground-glass opacity diffusely and bilaterally. This it is more pronounced in the upper lung zones but affects upper and lower lobes. It is more pronounced than it was on March 14, 2017, but is not new. No bony destructive lesion is appreciated. Exam is otherwise unremarkable. Impression: 1. No CT evidence of pulmonary embolism. 2. Patchy areas of alveolar ground-glass opacity and consolidation in the upper lobes bilaterally more pronounced but not new when compared with the March 14, 2017 prior study. Finding is nonspecific compatible with viral or atypical pneumonia, and opportunistic infection such as Pneumocystis. Signed by Riaz Johnson MD 04/22/2017 03:33 P
[2017-04-22] MEDS ORDERED: VANCOMYCIN HCL 1,000 MG, VIAL MATE ADAPTER 1 EACH in D5W 250 ML IV ONE (15:30)
[2017-04-22] MEDS ORDERED: PIPERACILLIN/TAZOBACTAM SOD 3.375 GM in APPROPRIATE DILUENT 1 EA IV ONE (15:30)
[2017-04-22] MEDS ORDERED: ACETAMINOPHEN TAB 650MG DOSE (2X325MG) PO PRN (17:00)
[2017-04-22] MEDS ORDERED: IPRATROPIUM 0.5MG/ALBUTEROL 2.5MG INH SOL UD 3ML (DUONEB)(J7620) NEB PRN (17:00)
[2017-04-22 17:27] LABS: MAGNESIUM LEVEL 2.2 MG/DL (1.8-2.4)
[2017-04-22] MEDS: ENOXAPARIN 40 MG/0.4 ML SYRINGE (J1650) SC SCH (18:28)
[2017-04-22] MEDS: methylPREDNISolone INJ 125 MG/2 ML VIAL (J2930) IV SCH (18:28)
--- NOTE | 2017-04-22 18:35 | ECGEPIP ---
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
--- NOTE | 2017-04-22 18:45 | HPEPDOC ---
General Date of Admission 04/22/2017 Primary Care Physician: YASIR HAYWOOD DO Other Providers Dr. Garza - Rheumatology Attending Physician: NERY MILAN MD Chief Complaint The patient is a 41-year-old female admitted with a reason for visit of Chest Tightness. Source: Patient, RN notes reviewed, Old records Exam Limitations: No limitations Associated Symptoms: Cough, Loss of appetite, Shortness of breath History of Present Illness Ms. Carlin is a 41 year old female who presents to [facility] Emergency Department from her primary care provider's office with difficulty breathing. She reports a cough with shortness of breath and difficulty breathing for the past month. She states the cough produces a small amount of yellow phlegm. She cough so forcefully that it causes her to vomit, non-bloody. She has lost approximately 25 pounds over the last month secondary to no desire to eat and not due to dysphagia or odynophagia. She was recently admitted to [facility] in February with asthma exacerbation and pneumonia. Was initially diagnosed with sports-induced asthma and saw an eyelet machine operator at the age of 15. However, now she states that everything exacerbates her asthma. She states since that time she has not had improvement in her breathing. Her past medical history is significant for rheumatoid arthritis. She had been treated with Methotrexate and Arava; however, two weeks ago her catcher helper, Dr. Garza, stopped both medications in light of her recent respiratory complaints. She was recommended to see a high school physical education teacher, but has not yet had an appointment set. She does admit to chronic lower extremity lymphedema that is hereditary, according to patient without associated trauma or surgery reported. Hospitalist service was consulted for patient to be admitted for further medical management. Home Medications Scheduled (Stiolto Respimat 2.5-2.5 Mcg/Act) 1 Aer Aer, 2 PUFF INH DAILY, (Reported) Folic Acid (Folic Acid) 1 Mg Tab, 1 MG PO DAILY, (Reported) Hydrochlorothiazide (Hydrochlorothiazide) 12.5 Mg Cap, 12.5 MG PO DAILY, ( Reported) Multivitamins *[facility] STOCKED* (Thera M Plus *[facility] STOCKED*) 1 Tab Tab, 1 TAB PO DAILY, (Reported) Omeprazole (Omeprazole) 40 Mg Cap, 40 MG PO DAILY, (Reported) Scheduled PRN Albuterol Sulfate (Proair Hfa) 108 Mcg/Act Aer, 2 PUFFS INH Q4H PRN for SHORTNESS OF BREATH, (Reported) Albuterol Sulfate (Albuterol Sulfate) 2.5 Mg/3 Ml Nebu, 1 QUEENIE INH Q4H PRN for SHORTNESS OF BREATH, (Reported) Allergies Coded Allergies: Raspberry (Unverified Allergy, Intermediate, HIVES, 03/14/17) SEAFOOD (Verified Allergy, Unknown, 02/13/17) Past Medical History Medical History 1. Asthma 2. Hypertension 3. Gastroesophageal reflux disease 4. Rheumatoid arthritis 5. History of MRSA 6. Seasonal allergies 7. Degenerative disc disease, lumbar spine 8. Gonzales's cyst 9. Lower extremity lymphedema Surgical History None Family History Father: Unknown health history Mother: Alive, 61, heart disease, asthma, obstructive sleep apnea Siblings: - Sister: Alive, 36, healthy - Sister: Alive, 34, asthma Social History Lives with Mother and Stepfather. Is currently disabled. Has 4 dogs, 4 Ring- Necked doves, and 1 fish in the home. Smoked very briefly at the age of 37 for approximately 3 months, 1/2 PPD. Uses EtOH occasionally. Denies travel history. No children. Review of Symptoms Constitutional: Reports: Fever (101-103 since 04/20/17), Weight Loss (25# weight loss over the last month), Denies: Chills, Night Sweats, Weakness Eyes: Denies: Vision change ENT: Denies: Head Aches, Dysphagia, Sinus Congestion, Post Nasal Drip, Sore Throat, Epistaxis Skin: Denies: Rash, Lesions, Bruising Pulmonary: Reports: Dyspnea (Difficulty breathing), Cough (Yellow phlegm), Pleuritic Chest Pain (Midline, anterior) Cardiovascular: Reports: Chest Pain (Associated with cough, midline and anterior chest), Edema (Chronic lower extremity lymphedema), Denies: Palpitations, Orthopnea, Paroxysmal Noc. Dyspnea, Lt Headedness Gastrointestinal: Reports: Vomiting (Associated with cough, non-bloody), Denies: Nausea, Abdominal Pain, Diarrhea, Constipation, Melena, Hematochezia Genitourinary: Denies: Dysuria, Frequency, Incontinence, Hematuria Hematologic: Denies: Bruising, Petecchia, Purpura, Enlarged Lymph Nodes Endocrine: Denies: Polydipsia, Polyphagia, Polyuria Musculoskeletal: Reports: Leg Pain (Chronic lower extremity lymphedema), Denies: Neck Pain, Back Pain, Joint Pain, Muscle Pain Neurological: Denies: Weakness, Numbness Physical Examination General Exam: Positive: Alert, Cooperative, No Acute Distress Eye Exam: Positive: PERRLA, Conjunctiva & lids normal, EOMI, Negative: Sclera icteric, Ptosis ENT Exam: Positive: Atraumatic, Mucous membr. moist/pink, Pharynx Normal, Tongue Midline, Nares Patent, Negative: Pharyngeal Edema Neck Exam: Positive: Supple, +2 carotid pulse wo bruit, Lymphadenopathy, Negative: JVD, thyromegaly Chest Exam: Positive: Rales (Diffuse), Diminished Heart Exam: Positive: Tachycardic, Regular Rhythm, Normal S1, Normal S2, Murmurs (Grade II/ pansystolic murmur), Negative: Gallops, Rubs Telemetry: Positive: Tachycardia Abdomen Exam: Positive: Normal bowel sounds, Soft, Negative: Tenderness, Hepatospenomegaly, Mass, Hernia Extremity Exam: Positive: Edema (Chronic lower extremity lymphedema), Negative: Clubbing, Cyanosis Skin Exam: Negative: Rash, Lesion Neuro Exam: Positive: Normal Speech Psych Exam: Positive: Oriented x 3 Other physical findings Chest x-ray, 2 view, PA and lateral IMPRESSION: Bilateral upper lobe patchy interstitial infiltrates, diffuse peribronchial thickening. Question atypical pneumonia or viral pneumonia. This is new when compared with April 08, 2017 chest x-ray although similar findings were described on the chest CT report from March 14, 2017. CT chest angiography IMPRESSION: 1. No CT evidence of pulmonary embolism. 2. Patchy areas of alveolar ground-glass opacity and consolidation in the upper lobes bilaterally more pronounced but not new when compared with the March 14, 2017 prior study. Finding is nonspecific compatible with viral or atypical pneumonia, and opportunistic infection such as Pneumocystis. Vital Signs Vital Signs Date Time Temp Pulse Resp B/P (MAP) Pulse Ox O2 Delivery O2 Flow Rate FiO2 04/22/17 15:28 106 95 04/22/17 15:18 98.1 18 145/67 (93) Nasal Cannula 2.0 Height (in): 66 Weight (kg): 89.09 BMI (kg): 31.7 Laboratory Data Labs 24H Laboratory Tests 2 04/22/17 12:47: Immature Granulocyte % (Auto) 0.6H, White Blood Count 17.2H, Red Blood Count 4.44, Hemoglobin 11.5L, Hematocrit 37.1, Mean Corpuscular Volume 83.6, Mean Corpuscular Hemoglobin 25.9L, Mean Corpuscular Hemoglobin Concent 31.0L, Red Cell Distribution Width 18.6H, Platelet Count 581H, Neutrophils (%) (Auto) 74.1H , Lymphocytes (%) (Auto) 15.1L, Monocytes (%) (Auto) 8.9H, Eosinophils (%) (Auto ) 0.6, Basophils (%) (Auto) 0.7, Neutrophils # (Auto) 12.7H, Lymphocytes # (Auto ) 2.6, Monocytes # (Auto) 1.5H, Eosinophils # (Auto) 0.1, Basophils # (Auto) 0.1 , Immature Granulocyte # (Auto) 0.1H, Nucleated Red Blood Cells % (auto) 0.0, Prothrombin Time 14.4, Prothromb Time International Ratio 1.11, Activated Partial Thromboplast Time 33.0, Anion Gap 8, Glomerular Filtration Rate > 60.0, Blood Urea Nitrogen 6L, Creatinine 0.63, Sodium Level 137, Potassium Level 3.1L , Chloride Level 102, Carbon Dioxide Level 27, Calcium Level 9.0, Total Creatine Kinase 35, Creatine Kinase MB 1.0, Creatine Kinase MB Relative Index 2.85, Troponin I < 0.02, Human Chorionic Gonadotropin, Qual NEGATIVE CBC/BMP Laboratory Tests 04/22/17 12:47 Red Blood Count 4.44, Mean Corpuscular Volume 83.6, Mean Corpuscular Hemoglobin 25.9 L, Mean Corpuscular Hemoglobin Concent 31.0 L, Red Cell Distribution Width 18.6 H, Neutrophils (%) (Auto) 74.1 H, Lymphocytes (%) (Auto) 15.1 L, Monocytes (%) (Auto) 8.9 H, Eosinophils (%) (Auto) 0.6, Basophils (%) (Auto) 0.7, Neutrophils # (Auto) 12.7 H, Lymphocytes # (Auto) 2.6, Monocytes # (Auto) 1.5 H , Eosinophils # (Auto) 0.1, Basophils # (Auto) 0.1, Calcium Level 9.0, Total Creatine Kinase 35 Microbiology Microbiology 04/22/17 Blood Culture, Received Pending 04/22/17 Blood Culture, Received Pending 04/22/17 Influenza Virus Type A Antigen - Final, Complete 04/22/17 Influenza Virus Type B Antigen - Final, Complete Plan / VTE VTE Prophylaxis Ordered?: Yes (Lovenox 40mg SC daily) Plan Plan 1. Asthma exacerbation with leukocytosis - ABG - CRP - Duoneb 0.5mg/2.5mg nebulized every 6 hours - Duoneb 0.5mg/2.5mg nebulized every 2 hours as needed for shortness of breath/ wheezing - Methylprednisolone 60mg IV every 8 hours - Respiratory panel - Oxygen therapy orders; > 90% SpO2 - Consult pulmonology - Vancomycin 1000mg IV every 12 hours - Zosyn 3.375g IV every 6 hours - Trend cardiac markers as patient has anterior, midline chest pain 2. Hypertension - Hydrochlorothiazide 12.5mg by mouth every day 3. Hypokalemia - Potassium 40mEq by mouth one dose 4. Gastroesophageal reflux disease - Omeprazole 40mg by mouth every day 5. Rheumatoid arthritis - Previously on Methotrexate and Arava; recently stopped by catcher helper 6. History of MRSA - Rescreen 7. Lower extremity lymphedema - Compression stockings Disposition Admit: Anticipated hospitalization: Attending: Diet: Continue Current Activity: Continue Current Diagnostics: Check Labs, Repeat Labs in AM, Obtain Cultures Anticipated Discharge: Home VIRGINIE MONTES DO Apr 22, 2017 15:54
[2017-04-22] MEDS: IPRATROPIUM 0.5MG/ALBUTEROL 2.5MG INH SOL UD 3ML (DUONEB)(J7620) NEB SCH ×2 (20:00→21:44)
[2017-04-23] MEDS ORDERED: PIPERACILLIN/TAZOBACTAM SOD 3.375 GM in APPROPRIATE DILUENT 1 EA IV SCH ×2
[2017-04-23 00:30] VITALS: BP 193/85
[2017-04-23] MEDS: PIPERACILLIN/TAZOBACTAM SOD 3.375 GM in APPROPRIATE DILUENT 1 EA IV SCH ×4 (01:17→20:01)
[2017-04-23] MEDS: methylPREDNISolone INJ 125 MG/2 ML VIAL (J2930) IV SCH ×2 (01:18→09:15)
[2017-04-23] MEDS: VANCOMYCIN HCL 1,000 MG, VIAL MATE ADAPTER 1 EACH in D5W 250 ML IV SCH ×3 (01:18→17:22)
--- NOTE | 2017-04-23 03:43 | PHACANCOPD ---
PHARMACY VANCOMYCIN DOSING Pt Demographics Demographics Patient Age:41 , Weight:86.100 , Gender: female Adjusted Body Weight Date: 04/23/17, Adjusted Body Weight: [71.2] Kg Vancomycin Vancomycin indication: HCAP Vancomycin Target Ranges: 15-20 mcg/ml Vancomycin Load Y/N: No Load Dose Date Time Vancomycin Load Dose: Date: Time: Vancomycin Dose Date: 04/23/17. Current Vancomycin Dose: Intermittent Dosing?: No Labs Labs Laboratory Tests 04/22/17 12:47 Red Blood Count 4.44, Mean Corpuscular Volume 83.6, Mean Corpuscular Hemoglobin 25.9 L, Mean Corpuscular Hemoglobin Concent 31.0 L, Red Cell Distribution Width 18.6 H, Neutrophils (%) (Auto) 74.1 H, Lymphocytes (%) (Auto) 15.1 L, Monocytes (%) (Auto) 8.9 H, Eosinophils (%) (Auto) 0.6, Basophils (%) (Auto) 0.7, Neutrophils # (Auto) 12.7 H, Lymphocytes # (Auto) 2.6, Monocytes # (Auto) 1.5 H , Eosinophils # (Auto) 0.1, Basophils # (Auto) 0.1, Calcium Level 9.0, Total Creatine Kinase 35 Micro Microbiology 04/22/17 Blood Culture, Received Pending 04/22/17 Blood Culture, Received Pending 04/22/17 Respiratory Virus Panel (PCR) (CORDELIA) - Final, Complete 04/22/17 Influenza Virus Type A Antigen - Final, Complete 04/22/17 Influenza Virus Type B Antigen - Final, Complete Creatinine Clearance Date:04/23/17. Creatinine Clearance: [110]CALCULATED. Pending Labs Vancomycin trough due: 04/23@1600 Assessment and Plan Maintaining Current Dose?: Yes Reason for dose change: No Dose Change Pharmacist Note Pharmacist Note Date: 04/23/17. Pharmacist note:41 YOF Admitted with worsening SOB/Possible HCAP /Sepsis.ht:66" wt:89.1 kg(abw=71.2kg),SCR=0.63. Calculated CRCL>100.NKDA.ABX TX includes Pip/Tazo 3.375 iv Q6h and Vancomycin per Pharmacy consult.( 1 gram Vancomycin administered in ED @ 1630 04/22) will continue Vancomycin 1 gram dose Q8 hours to begin @ 0100 04/23.First trough will post prior to the 4th dose (due 04/23@1600)Will continue to follow levels and labs. RAHEEM GRANT PHARMACY Apr 23, 2017 03:43
[2017-04-23 06:00] VITALS: BP_SYST 115; BP_SYST 136; BP_DIAS 68; BP_DIAS 69
[2017-04-23] MEDS: IPRATROPIUM 0.5MG/ALBUTEROL 2.5MG INH SOL UD 3ML (DUONEB)(J7620) NEB SCH ×3 (07:13→20:35)
[2017-04-23 07:42] LABS: BASO % 0.2 % (0.0-1.0); IMMATURE GRANULOCYTE % 0.8 % (0-0); LYMPH # 1.1 10^3/uL (1.5-4.5); LYMPH % 10.9 % (24.0-44.0); MEAN CORPUSCULAR HEMOGLOBIN 26.3 pg (27.0-33.0); MEAN CORPUSCULAR HGB CONC 30.6 g/dl (32.0-36.5); MEAN CORPUSCULAR VOLUME 85.9 fl (80.0-96.0); MONO # 0.2 10^3/uL (0.0-0.8); MONO % 1.6 % (0.0-5.0); NEUTROPHILS # 8.5 10^3/uL (1.8-7.7); NEUTROPHILS % 86.5 % (36.0-66.0); PLATELET COUNT, AUTOMATED 509 10^3/uL (150-450); RED CELL DISTRIBUTION WIDTH 18.6 % (11.5-14.5); WHITE BLOOD COUNT 9.9 10^3/uL (4.0-10.0)
--- NOTE | 2017-04-23 07:54 | IPN ---
DATE OF SERVICE: 04/23/2017 Patient seen and examined at the bedside. Chart has been reviewed. The patient states that her bleeding is much improved. She continues to have a dry cough. No fever or chills. She has a chronic headache, which is not out of the ordinary. She also complains of chronic diarrhea that she has had all her life. Says that she has loose stools when she eats tomato sauce, [employer], and all others. Patient also states a 25 pound weight loss over the past month with decrease in appetite. No other issues per nursing overnight. VITAL SIGNS: Temperature 99.2, pulse 65, respiratory rate 15, blood pressure 115/60, 97% on 2 liters nasal cannula. Generally, patient is awake, alert and oriented times three, answering questions appropriately. No respiratory distress. Able to speak in full sentences. No use of respiratory accessory muscles. Lungs diminished. Clear to auscultation. Heart S1, S2, sinus rhythm. Abdomen is soft, nontender, nondistended. Positive bowel sounds. Extremities chronic lower extremity lymphedema, negative clubbing or cyanosis. Laboratory data and microbiology have been reviewed. Imaging studies have been reviewed. ASSESSMENT/PLAN: This is a 41-year-old female with past medical history significant for asthma, hypertension, reflux, rheumatoid arthritis, Methicillin-resistant Staphylococcus aureus (MRSA), seasonal allergies, degenerative disc disease, Gonzales's cyst, lower extremity lymphedema, who presents to the emergency room with progressive shortness of breath. The patient was found to have ground glass opacities and a consolidation in the upper lobes bilaterally. Questionable opportunistic infection versus atypical or viral pneumonia. CURRENT ISSUES: Abnormal CT chest/Pneumonitis of unknown etiology in an immunocompromised patient with history of Rheumatoid Arthritis. Ground Glass opacities to be evaluated by technical support representative Dr. Zeng for differential diagnoses and further management. will continue steroids for now, and appears appropriate for tapering doses soon. Currently on DuoNebs every 6 hours and every 2 hours as needed. Methyl prednisolone 60 IV every 8 hours. Negative respiratory panel. Oxygen saturation greater than 90%. Currently on no oxygen, on vancomycin and Zosyn. No chest pain this morning. Hypertension on hydrochlorothiazide 12.5 mg daily. Low potassium supplemented yesterday. Repeat lab work this morning is not available. Reflux on Protonix. Rheumatoid arthritis previously on methotrexate and Arava, currently in an immunocompromised state. Discontinued by frame bender. History of Methicillin-resistant Staphylococcus aureus (MRSA). Check MRSA nasal swab. Contact precautions. Degenerative disc disease lumbar spine with chronic back pain. No acute issues. History of Gonzales's cyst. Chronic lower extremity edema. Deep vein thrombosis (DVT) prophylaxis with Lovenox subcutaneous. Acute Hypoxia with history of Asthma. no active wheezing at the bedside. supplemental oxygen for o2 sat<88% with ambulation. supportive care with steroids and nebs for now. Will discontinue antibiotics if ok with pulmonary if no other signs of infection due to risk of clostridium difficile. disposition, may dc in am if ok w pulmonary and stable overnight. MTDD
[2017-04-23 08:03] LABS: GLUCOSE, FASTING 165 MG/DL (70-105)
[2017-04-23 08:04] LABS: ANION GAP 7 MEQ/L (8-16); BLOOD UREA NITROGEN 7 MG/DL (7-18); CALCIUM LEVEL 9.2 MG/DL (8.5-10.1); CARBON DIOXIDE LEVEL 28 MEQ/L (21-32); CHLORIDE LEVEL 107 MEQ/L (98-107); CREATININE FOR GFR 0.65 MG/DL (0.55-1.02); GLOMERULAR FILTRATION RATE > 60.0 (>58); MAGNESIUM LEVEL 2.6 MG/DL (1.8-2.4); POTASSIUM SERUM 4.8 MEQ/L (3.5-5.1); SODIUM LEVEL 142 MEQ/L (136-145)
[2017-04-23] MEDS: OMEPRAZOLE 20 MG CAP PO SCH (09:15)
[2017-04-23] MEDS: MULTIVITAMINS/MINERALS THERAP 1 TAB PO SCH (09:15)
[2017-04-23] MEDS: hydroCHLOROthiazide 12.5 MG CAPSULE PO SCH (09:15)
[2017-04-23] MEDS: FOLIC ACID 1 MG TAB PO SCH (09:15)
[2017-04-23 14:00] VITALS: BP 156/80
[2017-04-23] MEDS: ENOXAPARIN 40 MG/0.4 ML SYRINGE (J1650) SC SCH (17:22)
--- NOTE | 2017-04-23 18:03 | CR ---
DATE OF CONSULTATION: 04/23/2017 CHIEF COMPLAINT: I was asked by Dr. Newell to evaluate Ms. Carlin for an abnormal chest CT scan. HISTORY OF PRESENT ILLNESS: Ms. Carlin is a 41-year-old white female who really had no significant respiratory difficulties until mid February of this year when she presented to the emergency department with a persistent cough and the sensation of shortness of breath. She believes her symptoms started with a upper respiratory infection (URI). On discharge, they felt that she had an asthma exacerbation. It is listed secondary to community acquired bacterial pneumonia but there was no abnormalities on her radiographic scans to suggest a bacterial pneumonic process. What did have on the chest CT scan was ground glass opacities that would have been more consistent with either edema or viral infection, versus a more intrinsic lung process. She was treated with corticosteroids and antibiotics, and discharged to home after three days. She reports to me that she felt better at home, but not back to her baseline. Over time, her cough started to worsen. It remained a dry cough. She felt chest tightness and shortness of breath. She was not having any relief from her nebulized bronchodilator and proceeded to the emergency department. There she was found to again have ground glass opacities on her chest CT scan with some slight worsening in the upper lobes bilaterally. Other findings in the emergency department include relative hypoxemia with an SpO2 of 90% on room air. She was afebrile, though she reported temperatures over 103 at home. Her WBC count was elevated at 17.2, but has normalized today despite being given corticosteroids. Ms. Carlin describes a history of asthma. Her history is that she had one attack at age 15 and was told that she had exercise induced asthma with no testing. She reports she was told never to run or have any significant exercise because of this. She had difficulty, but always had access from that point on to a rescue bronchodilator, which she was using approximately one time every two months until the episode that began in February. She denies postnasal drip, other than her current URI, GERD symptoms on medication, lower extremity, nausea, emesis, or history of DVT. No drenching night sweats. She notes temperatures up to 103, though none have been recorded since she came to the hospital. ALLERGIES: Raspberries and seafood. MEDICATIONS ON ADMISSION: - albuterol MDI two puffs every 4 hours as needed - albuterol nebulization one nebulization every 4 hours as needed - folic acid 1 mg by mouth daily - hydrochlorothiazide 12.5 mg by mouth daily - multivitamin one by mouth daily - omeprazole 40 mg by mouth daily - Stiolto Respimat two puffs daily PAST MEDICAL HISTORY: 1. Asthma per patient. 2. Hypertension. 3. Gastroesophageal reflux disease (GERD). 4. Rheumatoid arthritis. 5. History of Methicillin-resistant Staphylococcus aureus (MRSA). 6. Seasonal allergies per patient. 7. Degenerative disc disease. 8. Gonzales's cyst. 9. Congenital lower extremity lymphedema. 10. Ms. Carlin also has a history of rheumatoid arthritis and has been maintained on methotrexate and Arava. She has been on both those medications for about 3 years, but they were both also stopped approximately two weeks ago. She has never been on prolonged systemic corticosteroids. FAMILY HISTORY: Her biological father's history is unknown. Her mother is age 61 and has heart disease, asthma and obstructive sleep apnea (ANGELO). She has a 36-year-old sister who is healthy and a 34-year-old with a history of asthma. SOCIAL HISTORY: Ms. Carlin lives with her mother and stepfather. She does not work and is currently disabled. She has four days, four doves and one fish in the household. The doves have been in her home approximately a month, in two cages, three in one and one in the other, and can fly in the cages. They are not let out of the cage, but she does clean the cages. She previously had four doves who lived 12 years before dying and these are the replacement. I do not know how long it was between when her doves and her replacement doves. She does not have a hot tub in her house. No other obvious source for possible hypersensitivity pneumonitis. She does not have any outdoor hobbies. Her hobbies include shopping. She briefly smoked for three months three years ago. There are occasional visitor to the home that smoke, but they do so exclusively outside. REVIEW OF SYSTEMS: Per history of present illness. Remainder of pertinent review of systems are negative. PHYSICAL EXAMINATION: GENERAL: Ms. Carlin is lying in bed in no acute distress. She can complete very long sentences. She is very animated when talking. No cough throughout evaluation. VITAL SIGNS: Temperature 98 with a T-max of 99.6 core. Pulse 118, respiratory rate 20, blood pressure 156/80 with an MAP of 105. SpO2 92% on room air. HEENT: Anicteric. Nares patent bilaterally. No significant edema. Oropharynx clear. No lesions. Good dentition. Mallampati 3-4. Moist mucosa. NECK: Supple, without jugular venous distention (JVD), thyromegaly or masses. Trachea is midline. LYMPHS: Without cervical or supraclavicular lymphadenopathy. CHEST: Normal shape. LUNGS: Symmetric excursion, scattered end inspiratory fine crackles at the bases bilaterally. No wheeze or rhonchi. Normal I-to-E. No change on examination on forced maneuver. No accessory muscle usage or retractions. Normal percussion to palpation. CARDIOVASCULAR: Tachycardic, regular rhythm, normal S1 and S2, no murmur, rub or gallop appreciated. ABDOMEN: Positive bowel sounds, soft, nondistended, nontender. No hepatosplenomegaly or masses appreciated. EXTREMITIES: Without clubbing, cyanosis, or pitting edema. Palpable pedal pulses bilaterally. LABORATORY DATA: CBC from this morning showed a hemoglobin of 11.0, hematocrit 35.9, platelet count 509,000, white blood cell count 9900 with a differential of 87% neutrophils, 11% lymphocytes, and 2% monocytes. Her CBC on admission yesterday was 17.2. INR 1.11 and PTT 33. Chemistries today showed a sodium of 142, potassium 4.8, chloride 107, bicarbonate 28, anion gap 7, BUN 7, creatinine 0.7, glucose 165, calcium 9.2, magnesium 2.6, CRP 13.8, hCG quantitative is negative. I reviewed her chest CT scan as well as the report from 04/22/2017. That CT showed normal appearing cardiac silhouette and pulmonary vascular shadows. No mediastinal or hilar adenopathy. No pulmonary embolism. There is bilateral ground glass opacities with no significant consolidative regions with the greatest region involvement being the upper lobes bilaterally. I also reviewed her chest CT scan from 03/14/2017. That CT scan showed similar appearances, but there is an increase in the amount of ground glass opacities in the upper lobes compared to that film. I reviewed her chest x-ray from 04/22/2017. That x-ray showed evidence of ground glass opacity bilaterally. Normal appearing cardiac silhouette and pulmonary vascular shadows. No abnormal appearing inflation. IMPRESSION: 1. Abnormal chest CT scan and chest x-ray with ground glass opacities with predominance in the upper lobes that is slightly worse now than it was a month ago. The differential would still include a postviral process with a second intercurrent URI, just a postviral process (the sandro of her chest CT scan may not have been present when she initially presented), early interstitial lung disease either from rheumatoid arthritis or methotrexate, opportunist infection as she has been immunosuppressed with her rheumatologic medications, versus hypersensitivity pneumonitis (she does have doves at home that do fly in their cage), versus other. 2. Asthma per history. However, in reviewing her history, it is not clear that she has ever had an evaluation for asthma. The way she reports her diagnosis makes me questions whether she truly has asthma, if she knew she had then she does now. Of note, on her presenting film, she is not hyperinflated, which is what you would expect with an asthma exacerbation. 3. Relative hypoxemia. I suspect that this is secondary to whatever process is causing the ground glass opacities. 4. Birds in the household. RECOMMENDATIONS: 1. I do not see any evidence of a bacterial type infection by history or by her radiographic films, and therefore recommend discontinuing vancomycin and Zosyn. 2. I would continue corticosteroids but would change it to 40 mg by mouth. 3. I feel that she could be discharged to home in the very near future, perhaps even tomorrow morning on systemic corticosteroids. 4. When I originally spoke to Dr. Newell, I recommended she have a pretty standard taper. However, now that I have been able to review her chest x-ray and see that she not hyperinflated, I would recommend that she stay on corticosteroids until she is seen by me in six weeks. I recommend that she say on 40 mg daily for perhaps two weeks and then decrease to 20 mg daily until seen. 5. I would like to see her in followup in the pulmonary clinic in four to six weeks with a chest x-ray, PA and lateral. I had also recommended to Dr. Newell that I would like to have her with a CT scan without contrast. However, since then I have been able to review the chest x-ray and the infiltrates are seen on x-ray and I would rather start with an x-ray and only a CT after that has cleared. I will relay these new recommendations. Thank you for this consult and will continue to follow with you as long as she is in the hospital.
[2017-04-23 22:00] VITALS: BP 131/80
[2017-04-24] MEDS ORDERED: BENZONATATE 100 MG CAP PO ONE (00:15)
[2017-04-24] MEDS: VANCOMYCIN HCL 1,000 MG, VIAL MATE ADAPTER 1 EACH in D5W 250 ML IV SCH ×2 (00:40→11:07)
[2017-04-24] MEDS: PIPERACILLIN/TAZOBACTAM SOD 3.375 GM in APPROPRIATE DILUENT 1 EA IV SCH ×3 (00:40→12:00)
[2017-04-24] MEDS: IPRATROPIUM 0.5MG/ALBUTEROL 2.5MG INH SOL UD 3ML (DUONEB)(J7620) NEB SCH ×3 (02:00→13:07)
[2017-04-24 06:00] VITALS: BP 116/62
[2017-04-24 07:10] LABS: ANION GAP 6 MEQ/L (8-16); BLOOD UREA NITROGEN 9 MG/DL (7-18); CARBON DIOXIDE LEVEL 30 MEQ/L (21-32); CHLORIDE LEVEL 106 MEQ/L (98-107); CREATININE FOR GFR 0.85 MG/DL (0.55-1.02); GLOMERULAR FILTRATION RATE > 60.0 (>58); GLUCOSE, FASTING 129 MG/DL (70-105); MAGNESIUM LEVEL 2.1 MG/DL (1.8-2.4); POTASSIUM SERUM 3.3 MEQ/L (3.5-5.1); SODIUM LEVEL 142 MEQ/L (136-145)
[2017-04-24] MEDS ORDERED: PRED20TA PO (07:17)
[2017-04-24 07:18] LABS: BASO # 0.1 10^3/uL (0.0-0.2); BASO % 0.5 % (0.0-1.0); IMMATURE GRANULOCYTE % 1.3 % (0-0); LYMPH # 3.4 10^3/uL (1.5-4.5); MEAN CORPUSCULAR HEMOGLOBIN 26.1 pg (27.0-33.0); MEAN CORPUSCULAR HGB CONC 30.7 g/dl (32.0-36.5); MEAN CORPUSCULAR VOLUME 85.1 fl (80.0-96.0); MONO # 1.2 10^3/uL (0.0-0.8); MONO % 4.9 % (0.0-5.0); NEUTROPHILS # 19.1 10^3/uL (1.8-7.7); NEUTROPHILS % 79.3 % (36.0-66.0); PLATELET COUNT, AUTOMATED 562 10^3/uL (150-450); RED CELL DISTRIBUTION WIDTH 18.6 % (11.5-14.5)
[2017-04-24 07:52] VITALS: O2SAT 95
[2017-04-24] MEDS ORDERED: predniSONE 20 MG TAB PO SCH (09:00)
[2017-04-24] MEDS: OMEPRAZOLE 20 MG CAP PO SCH (11:05)
[2017-04-24] MEDS: hydroCHLOROthiazide 12.5 MG CAPSULE PO SCH (11:06)
[2017-04-24] MEDS: FOLIC ACID 1 MG TAB PO SCH (11:06)
[2017-04-24] MEDS: MULTIVITAMINS/MINERALS THERAP 1 TAB PO SCH (11:06)
--- NOTE | 2017-04-24 13:34 | DSES ---
DATE OF ADMISSION: 04/22/2017 DATE OF DISCHARGE: CHILD NUTRITION DIRECTOR: Michael Zeng MD PRIMARY CARE PHYSICIAN: Jesse Richmond PRIMARY DISCHARGE DIAGNOSES: 1. Acute hypoxic respiratory failure. 2. Abnormal chest CT with ground-glass opacities/pneumonitis. 3. History of asthma. 4. Gastroesophageal reflux disease. 5. Electrolyte abnormalities with low potassium. 6. Hypertension. 7. History of rheumatoid arthritis. Previously on methotrexate and Arava with chronic immunosuppression. 8. History of methicillin-resistant Staphylococcus aureus (MRSA). 9. Degenerative disc disease (DDD). 10. History of Gonzales cyst. 11. Obesity. Body mass index (BMI) of 30.9. DISCHARGE MEDICATIONS: - prednisone 40 mg daily for 2 weeks and 20 mg daily until seen by her transit department clerk, Dr. Zeng - ProAir two puffs inhaled every 4 as needed shortness of breath - albuterol one inhaled every 4 as needed shortness of breath - folic acid 1 mg daily - hydrochlorothiazide 12.5 daily - multivitamin one tablet daily - omeprazole 40 daily - Stiolto Respimat two puffs inhaled daily HOSPITAL COURSE: This is a 41-year-old female with past medical history significant for rheumatoid arthritis, previously been on methotrexate and Arava, asthma, hypertension, reflux, MRSA positive, seasonal allergies, degenerative joint disease, who presents to the emergency room with progressive shortness of breath. CT chest to rule out pulmonary embolism (PE) showed ground-glass opacities bilateral, consolidation in upper lobes. The patient reports a fever of 103 at home. She was given vancomycin and Zosyn. White count of 17,000 improved to 9.9. The patient was started on Solu-Medrol 60 mg intravenous (IV) every 8 with resultant increase in white count to 24,000. The patient was seen by Dr. Zeng, who recommended continued prednisone use, 40 mg for 2 weeks and 20 mg daily until she is seen at the transit department clerk's office. The patient had episode of hypoxia requiring oxygen 92% on 2 liters. Microbiology was negative for respiratory panel. Blood culture negative after 24 hours. Vancomycin and Zosyn were discontinued as recommended by Dr. Zeng, as the patient's infiltrates did not appear to be bacterial in nature. LABORATORIES ON DISCHARGE: White count 24, hemoglobin 10, hematocrit 34, platelet count 562. Sodium 142, potassium 3.3, chloride 106, bicarbonate 30, BUN 9, creatinine 0.85, glucose of 129, magnesium of 2.1. MICROBIOLOGY: 04/22/2017: Two sets of blood culture negative. Respiratory panel negative. Influenza A and B negative. MRSA screen pending. IMAGING STUDIES: CT chest 04/22/2017: No CT evidence of pulmonary embolism. Stable right superior mediastinal lymph node measures 1.1 cm. No pleural or pericardial effusion. No adrenal lesion is observed. Lung window settings demonstrate patchy areas of interstitial and alveolar ground-glass opacity diffusely and bilaterally. More pronounced in the upper lung zones but affects upper and lower lobes. More pronounced than it was in February 2017 but is not new. Examination is otherwise unremarkable. TIME SPENT ON DISCHARGE: 30 minutes.
[2017-04-24 14:00] VITALS: BP 139/76
[2017-04-26 00:08] LABS: ORGANISM ID Not indicated. (.); SPECIMEN SOURCE Urine (.)
== END 2017-04-24 15:00 | disposition home or self-care (01) | DRG 193 ==
LOC: M ED 11:58 → M ED INP 20:46 → M MS5PR 04-23 00:40
PROVIDERS: ADMIT Hospitalist; ATTEND General Practice
DX: J18.9 Pneumonia, unspecified organism (principal); J96.01 Acute respiratory failure with hypoxia; J45.901 Unspecified asthma with (acute) exacerbation; K21.9 Gastro-esophageal reflux disease without esophagitis; E66.9 Obesity, unspecified; I10 Essential (primary) hypertension; E87.6 Hypokalemia; Z68.30 Body mass index [BMI] 30.0-30.9, adult; M06.9 Rheumatoid arthritis, unspecified; Z79.899 Other long term (current) drug therapy; Z91.018 Allergy to other foods; Z91.013 Allergy to seafood; M51.36 Other intervertebral disc degeneration, lumbar region; M71.20 Synovial cyst of popliteal space [Baker], unspecified knee

== ENCOUNTER 2017-05-27 17:44 | Inpatient (IN) | payer MEDICARE, MEDICAID ==
[2017-05-27] MEDS: IPRATROPIUM 0.5MG/ALBUTEROL 2.5MG INH SOL UD 3ML (DUONEB)(J7620) NEB ×2 (18:32→22:57)
[2017-05-27] MEDS: MAG SULF 1GM/100ML (MAG RUN) 1 GM in APPROPRIATE DILUENT 1 EA IV ×2 (19:00→20:30)
[2017-05-27] MEDS: NS 1,000 ML IV (19:00)
[2017-05-27] MEDS: methylPREDNISolone INJ 125 MG/2 ML VIAL (J2930) IV (19:00)
[2017-05-27 19:38] LABS: BASO # 0.1 10^3/uL (0.0-0.2); BASO % 0.6 % (0.0-1.0); EOS # 0.2 10^3/uL (0.0-0.50); EOS % 1.3 % (0.0-3.0); HEMATOCRIT 33.3 % (36.0-47.0); HEMOGLOBIN 10.3 g/dl (12.0-16.0); IMMATURE GRANULOCYTE # 0.1 10^3/uL (0-0); IMMATURE GRANULOCYTE % 0.6 % (0-0); LYMPH % 17.3 % (24.0-44.0); MEAN CORPUSCULAR HEMOGLOBIN 25.6 pg (27.0-33.0); MEAN CORPUSCULAR HGB CONC 30.9 g/dl (32.0-36.5); MEAN CORPUSCULAR VOLUME 82.6 fl (80.0-96.0); MONO # 0.7 10^3/uL (0.0-0.8); MONO % 5.6 % (0.0-5.0); NEUTROPHILS # 8.7 10^3/uL (1.8-7.7); NEUTROPHILS % 74.6 % (36.0-66.0); PLATELET COUNT, AUTOMATED 567 10^3/uL (150-450); RED BLOOD COUNT 4.03 10^6/uL (4.00-5.40); RED CELL DISTRIBUTION WIDTH 18.9 % (11.5-14.5); WHITE BLOOD COUNT 11.7 10^3/uL (4.0-10.0)
[2017-05-27 19:53] LABS: INR 1.16
[2017-05-27 19:56] LABS: LACTIC ACID SEPSIS PROTOCOL 1.3 MMOL/L (0.4-2.0)
[2017-05-27 19:57] LABS: ANION GAP 7 MEQ/L (8-16); BLOOD UREA NITROGEN 6 MG/DL (7-18); CALCIUM LEVEL 8.8 MG/DL (8.5-10.1); CARBON DIOXIDE LEVEL 30 MEQ/L (21-32); CHLORIDE LEVEL 103 MEQ/L (98-107); CPK CREATINE PHOSPHOKINASE 49 U/L (26-192); CREATININE FOR GFR 0.69 MG/DL (0.55-1.02); GLOMERULAR FILTRATION RATE > 60.0 (>58); GLUCOSE, FASTING 153 MG/DL (70-105); MB/CK RELATIVE INDEX 2.04 (< OR =4); POTASSIUM SERUM 3.1 MEQ/L (3.5-5.1); SODIUM LEVEL 140 MEQ/L (136-145); TROPONIN I < 0.02 NG/ML (< 0.10)
[2017-05-27 20:02] LABS: ALBUMIN 3.2 GM/DL (3.2-5.2); ALBUMIN/GLOBULIN RATIO 0.84 (1.00-1.93); ALKALINE PHOSPHATASE 148 U/L (45-117); ALT/SGPT 42 U/L (12-78); AST/SGOT 51 U/L (7-37); BILIRUBIN,DIRECT 0.2 MG/DL (0.0-0.2); BILIRUBIN,TOTAL 0.5 MG/DL (0.2-1.0); NT-PRO BNP 56 PG/ML (<125); THYROID STIMULATING HORMONE 0.978 uIU/ML (0.358-3.740)
[2017-05-27 20:14] LABS: D-DIMER QUANT > 4000.0 ng/ml (<500)
[2017-05-27] MEDS: AZITHROMYCIN INJ 500 MG, VIAL MATE ADAPTER 1 EACH in D5W 250 ML IV (20:45)
[2017-05-27] MEDS: CEFTRIAXONE SOD 1 GM in APPROPRIATE DILUENT 1 EA IV (20:45)
[2017-05-27] MEDS ORDERED: ISOVUE-370 76% 100ML VIAL (Q9967) As Ordered (20:46)
[2017-05-27] MEDS ORDERED: ALBUTEROL SULFATE 2.5 MG/0.5 ML INH NEB SOLN INH (22:45)
[2017-05-27] MEDS ORDERED: PIPERACILLIN/TAZOBACTAM SOD 3.375 GM in APPROPRIATE DILUENT 1 EA IV (23:00)
[2017-05-27] MEDS: POTASSIUM CHLORIDE 10 MEQ SR TABLET PO (23:30)
[2017-05-27] MEDS ORDERED: FAMOTIDINE 20 MG TAB PO (23:30)
[2017-05-27] MEDS ORDERED: IPRATROPIUM 0.5MG/ALBUTEROL 2.5MG INH SOL UD 3ML (DUONEB)(J7620) NEB (23:30)
[2017-05-28] MEDS: **hydrALAZINE HCL** 25 MG TAB PO (00:15)
[2017-05-28] MEDS ORDERED: VANCOMYCIN HCL 1,000 MG, VIAL MATE ADAPTER 1 EACH in D5W 250 ML IV (00:45)
[2017-05-28] MEDS ORDERED: LEVALBUTEROL 1.25 MG/0.5 ML CONCENTRATE NEB INH (03:30)
[2017-05-28] MEDS: VANCOMYCIN HCL 1,000 MG, VIAL MATE ADAPTER 1 EACH in D5W 250 ML IV ×3 (03:58→21:09)
[2017-05-28] MEDS: PIPERACILLIN/TAZOBACTAM SOD 4.5 GM in APPROPRIATE DILUENT 1 EA IV ×4 (05:53→22:57)
[2017-05-28 07:44] LABS: HEMATOCRIT 32.5 % (36.0-47.0); MEAN CORPUSCULAR HEMOGLOBIN 25.5 pg (27.0-33.0); MEAN CORPUSCULAR HGB CONC 30.8 g/dl (32.0-36.5); MEAN CORPUSCULAR VOLUME 82.9 fl (80.0-96.0); PLATELET COUNT, AUTOMATED 569 10^3/uL (150-450); RED BLOOD COUNT 3.92 10^6/uL (4.00-5.40); RED CELL DISTRIBUTION WIDTH 19.1 % (11.5-14.5); WHITE BLOOD COUNT 11.1 10^3/uL (4.0-10.0)
[2017-05-28 07:56] LABS: ANION GAP 8 MEQ/L (8-16); BLOOD UREA NITROGEN 8 MG/DL (7-18); CARBON DIOXIDE LEVEL 27 MEQ/L (21-32); CHLORIDE LEVEL 107 MEQ/L (98-107); CREATININE FOR GFR 0.66 MG/DL (0.55-1.02); GLOMERULAR FILTRATION RATE > 60.0 (>58); GLUCOSE, FASTING 174 MG/DL (70-105); POTASSIUM SERUM 3.7 MEQ/L (3.5-5.1); SODIUM LEVEL 142 MEQ/L (136-145)
[2017-05-28] MEDS ORDERED: IPRATROPIUM 0.5MG/ALBUTEROL 2.5MG INH SOL UD 3ML (DUONEB)(J7620) NEB (08:00)
[2017-05-28] MEDS: LEVALBUTEROL 1.25 MG/0.5 ML CONCENTRATE NEB INH ×3 (08:42→20:22)
[2017-05-28] MEDS: MULTIVITAMINS CHILDREN'S CHEWABLE TABLET PO (10:13)
[2017-05-28] MEDS: ENOXAPARIN 40 MG/0.4 ML SYRINGE (J1650) SC (10:13)
[2017-05-28] MEDS: hydroCHLOROthiazide 12.5 MG CAPSULE PO (10:13)
[2017-05-28] MEDS: predniSONE 20 MG TAB PO (10:13)
[2017-05-28] MEDS: FOLIC ACID 1 MG TAB PO (10:14)
[2017-05-29] MEDS: LEVALBUTEROL 1.25 MG/0.5 ML CONCENTRATE NEB INH ×2 (02:00→08:10)
[2017-05-29] MEDS: PIPERACILLIN/TAZOBACTAM SOD 4.5 GM in APPROPRIATE DILUENT 1 EA IV (04:27)
[2017-05-29] MEDS: ENOXAPARIN 40 MG/0.4 ML SYRINGE (J1650) SC (08:42)
[2017-05-29] MEDS: hydroCHLOROthiazide 12.5 MG CAPSULE PO (08:42)
[2017-05-29] MEDS: MULTIVITAMINS CHILDREN'S CHEWABLE TABLET PO (08:43)
[2017-05-29] MEDS: predniSONE 20 MG TAB PO (08:43)
[2017-05-29] MEDS: FOLIC ACID 1 MG TAB PO (08:43)
[2017-05-31 00:07] LABS: BODY FLUID CULTURE Not Indicated (.); LEGIONELLA ANTIGEN URINE Negative (Negative); ORGANISM ID Not indicated. (.); SPECIMEN SOURCE Urine (.); URINE STREP PNEUMONIAE ANTIGEN Negative (Negative)
== END 2017-05-29 12:00 | disposition home or self-care (01) | DRG 194 ==
LOC: M ED INP 05-28 00:40 → M PED 05-28 02:48 → M ED 17:44
DX: J18.9 Pneumonia, unspecified organism (principal); J45.901 Unspecified asthma with (acute) exacerbation; D84.9 Immunodeficiency, unspecified; J30.89 Other allergic rhinitis; K21.9 Gastro-esophageal reflux disease without esophagitis; I10 Essential (primary) hypertension; E87.6 Hypokalemia; M06.9 Rheumatoid arthritis, unspecified; Z79.899 Other long term (current) drug therapy; Z91.013 Allergy to seafood; Z91.018 Allergy to other foods; Y95 Nosocomial condition

== ENCOUNTER → 2017-06-04 | Outpatient (CLI) | payer MEDICARE, MEDICAID ==
[2017-06-04 18:59] LABS: C REACTIVE PROTEIN QUANTITATIV 8.34 MG/DL (0.00-0.30)
[2017-06-04 18:59] LABS: IMMUNOGLOBULIN E 74.9 IU/ML (<100)
[2017-06-04 19:42] LABS: ERYTHROCYTE SEDIMENTATION RATE 86 mm/hr (0-20)
[2017-06-10 14:11] LABS: ANCA-ATYPICAL <1:20 titer (Neg:<1:20); ANTI DOUBLE STRAND-DNA AB <1 IU/mL (0-9); ANTINUCLEAR ANTIBODIES DIRECT Negative (Negative); ASPERGILLUS FUMIGATUS AB Negative (Negative); AUREOBASIDIUM PULLULANS Negative (Negative); CYTOPLASMIC NEUTROP AB ANCA-C <1:20 titer (Neg:<1:20); D001-IgE D pteronyssinus <0.10 kU/L (Class 0); E001-IgE Cat Epith/Dander < 0.10 kU/L (Class 0); E005-IgE Dog Dander < 0.10 kU/L (Class 0); G002-IgE Bermuda Grass < 0.10 kU/L (Class 0); G008-IgE Kentucky Bluegrass < 0.10 kU/L (Class 0); M001-IgE Penicillium chrysogen < 0.10 kU/L (Class 0); M002 IgE Cladosporium herbaru < 0.10 kU/L (Class 0); M003 IgE Aspergillus fumigatu < 0.10 kU/L (Class 0); M006-IgE Alternaria alternata < 0.10 kU/L (Class 0); MICROPOLYSPORA FAENI AB Negative (Negative); PERINUCLEAR AB ANCA-P <1:20 titer (Neg:<1:20); PIGEON SERUM AB Positive (Negative); RNP ANTIBODIES <0.2 AI (0.0-0.9); SJOGREN'S ANTI SS-A <0.2 AI (0.0-0.9); SJOGREN'S ANTI SS-B <0.2 AI (0.0-0.9); SMITH ANTIBODIES <0.2 AI (0.0-0.9); T001-IgE Maple/Box Elder < 0.10 kU/L (Class 0); T003-IgE Common Silver Birch < 0.10 kU/L (Class 0); T006-IgE Cedar, Mountain < 0.10 kU/L (Class 0); T007-IgE Oak, White < 0.10 kU/L (Class 0); T008-IgE Elm, American < 0.10 kU/L (Class 0); T015-IgE Ash, White < 0.10 kU/L (Class 0); T041-IgE Hickory, White < 0.10 kU/L (Class 0); T070-IgE White Mulberry < 0.10 kU/L (Class 0); THERMOACTINOMYCES SACCHARI Negative (Negative); THERMOACTINOMYCES VULGARIS Negative (Negative); W001-IgE Ragweed, Short < 0.10 kU/L (Class 0); W009-IgE Plantain, English < 0.10 kU/L (Class 0); W014-IgE Pigweed, Rough < 0.10 kU/L (Class 0); W018-IgE Sheep Sorrel < 0.10 kU/L (Class 0)
== END ==
LOC: M SMT 10:29
DX: R06.2 Wheezing (principal); R06.00 Dyspnea, unspecified; R91.8 Other nonspecific abnormal finding of lung field; R05 Cough
CPT/HCPCS: 82785

== ENCOUNTER → 2017-06-21 | Outpatient (CLI) | payer MEDICARE, MEDICAID ==
[2017-06-21 19:16] LABS: ALBUMIN 3.6 GM/DL (3.2-5.2); ALT/SGPT 39 U/L (12-78); CREATININE FOR GFR 0.67 MG/DL (0.55-1.02); GLOMERULAR FILTRATION RATE > 60.0 (>58)
[2017-06-21 19:28] LABS: BASO # 0.1 10^3/uL (0.0-0.2); BASO % 0.6 % (0.0-1.0); EOS # 0.1 10^3/uL (0.0-0.50); EOS % 1.2 % (0.0-3.0); HEMATOCRIT 35.1 % (36.0-47.0); HEMOGLOBIN 10.6 g/dl (12.0-16.0); IMMATURE GRANULOCYTE % 0.2 % (0-0); LYMPH % 23.6 % (24.0-44.0); MEAN CORPUSCULAR HGB CONC 30.2 g/dl (32.0-36.5); MEAN CORPUSCULAR VOLUME 82.8 fl (80.0-96.0); MONO # 0.5 10^3/uL (0.0-0.8); MONO % 6.3 % (0.0-5.0); NEUTROPHILS # 5.7 10^3/uL (1.8-7.7); NEUTROPHILS % 68.1 % (36.0-66.0); PLATELET COUNT, AUTOMATED 460 10^3/uL (150-450); RED BLOOD COUNT 4.24 10^6/uL (4.00-5.40); RED CELL DISTRIBUTION WIDTH 18.6 % (11.5-14.5); WHITE BLOOD COUNT 8.4 10^3/uL (4.0-10.0)
== END ==
LOC: M LAB 16:46
DX: M05.79 Rheumatoid arthritis with rheumatoid factor of multiple sites without organ or systems involvement (principal); Z51.81 Encounter for therapeutic drug level monitoring; Z79.899 Other long term (current) drug therapy
CPT/HCPCS: 84460

== ENCOUNTER → 2017-07-02 | Outpatient (CLI) | payer MEDICARE, MEDICAID | LOC: M SMT 11:20 | DX: R91.8 Other nonspecific abnormal finding of lung field (principal) | CPT/HCPCS: 71046 ==

== ENCOUNTER → 2017-07-18 | Outpatient (CLI) | payer MEDICARE, MEDICAID ==
[2017-07-18 15:37] LABS: BASO # 0.1 10^3/uL (0.0-0.2); BASO % 0.9 % (0.0-1.0); EOS # 0.2 10^3/uL (0.0-0.50); EOS % 2.1 % (0.0-3.0); HEMATOCRIT 36.7 % (36.0-47.0); HEMOGLOBIN 11.1 g/dl (12.0-16.0); IMMATURE GRANULOCYTE % 0.1 % (0-3.0); LYMPH # 1.9 10^3/uL (1.5-4.5); LYMPH % 24.7 % (24.0-44.0); MEAN CORPUSCULAR HEMOGLOBIN 25.2 pg (27.0-33.0); MEAN CORPUSCULAR HGB CONC 30.2 g/dl (32.0-36.5); MEAN CORPUSCULAR VOLUME 83.2 fl (80.0-96.0); MONO # 0.6 10^3/uL (0.0-0.8); MONO % 8.2 % (0.0-5.0); NEUTROPHILS # 4.9 10^3/uL (1.8-7.7); PLATELET COUNT, AUTOMATED 401 10^3/uL (150-450); RED BLOOD COUNT 4.41 10^6/uL (4.00-5.40); RED CELL DISTRIBUTION WIDTH 19.1 % (11.5-14.5); WHITE BLOOD COUNT 7.6 10^3/uL (4.0-10.0)
[2017-07-18 16:04] LABS: ALBUMIN 3.9 GM/DL (3.2-5.2); ALT/SGPT 53 U/L (12-78); CREATININE FOR GFR 0.74 MG/DL (0.55-1.30); GLOMERULAR FILTRATION RATE > 60.0 (>58)
== END ==
LOC: M LAB 15:06
DX: M05.79 Rheumatoid arthritis with rheumatoid factor of multiple sites without organ or systems involvement (principal); Z51.81 Encounter for therapeutic drug level monitoring; Z79.899 Other long term (current) drug therapy

== ENCOUNTER → 2017-07-18 | Outpatient (CLI) | payer MEDICARE, MEDICAID | LOC: M RAD 14:36 | DX: R91.8 Other nonspecific abnormal finding of lung field (principal); M05.79 Rheumatoid arthritis with rheumatoid factor of multiple sites without organ or systems involvement; Z51.81 Encounter for therapeutic drug level monitoring; Z79.899 Other long term (current) drug therapy | CPT/HCPCS: 71250 ==

== ENCOUNTER 2017-10-24 18:18 | Emergency (ER) | payer MEDICARE, MEDICAID, SELFPAY ==
[2017-10-24] MEDS: NORCO, ANEXSIA 5/325MG TABLET (HYDROcodone/ACETAMINOPHEN) PO (18:55)
[2017-10-24] MEDS: ADACEL/BOOSTRIX VACCINE (DIPHTH/PERTUSS/ACELL/TETANUS)0.5ML SYR (90715) IM (18:55)
== END 2017-10-24 20:02 | disposition home or self-care (01) ==
LOC: M ED 18:18
DX: S60.021A Contusion of right index finger without damage to nail, initial encounter (principal); W23.0XXA Caught, crushed, jammed, or pinched between moving objects, initial encounter; Y92.018 Other place in single-family (private) house as the place of occurrence of the external cause; I10 Essential (primary) hypertension; J45.909 Unspecified asthma, uncomplicated; K21.9 Gastro-esophageal reflux disease without esophagitis; M51.9 Unspecified thoracic, thoracolumbar and lumbosacral intervertebral disc disorder; Z79.899 Other long term (current) drug therapy; Z79.51 Long term (current) use of inhaled steroids; Z91.013 Allergy to seafood; Z91.018 Allergy to other foods
CPT/HCPCS: 90715